=== PATIENT | male | born 1950 | race American Indian/Alaskan Native ===

== ENCOUNTER 2017-07-06 06:06 | Inpatient (IN) | payer MEDICAID, MEDICARE, OTHER ==
--- NOTE | 2017-07-06 06:54 | Cat Scan Report ---
FINAL REPORT PROCEDURE: CT HEAD/BRAIN WO CON TECHNIQUE: Computerized tomography of the head was performed without contrast material. HISTORY: neuro deficits \T\lt; 6hrs or sx present upon awakening COMPARISON: No prior studies are available for comparison. FINDINGS: Skull and scalp: Normal. Paranasal sinuses: Normal. Ventricles and subarachnoid spaces: Normal. Cerebrum: No evidence of hemorrhage, acute infarction or mass. Significant atrophy and periventricular deep white matter changes are noted. Old lacunar infarctions of the basal ganglia.. Cerebellum and brainstem: No evidence of hemorrhage, acute infarction or mass. Vasculature: Normal. Comments: None. IMPRESSION: No evidence of an acute intracranial process. Significant atrophy and periventricular deep white matter changes. Old lacunar infarctions of both basal ganglia.
[2017-07-06] MEDS ORDERED: CATAPRES PO ONE (07:06)
--- NOTE | 2017-07-06 07:06 | Emergency Department Report ---
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 Patient was last seen yesterday evening about 8 PM after dinner. Sometime during the night patient fell on a floor. Patient does not know how he ended up from the floor and does not falling or passing out. He doesn't know how long he was on the floor. He denies any pain. Patient has some mild confusion. Initially states year is 1916 but then corrects to 2017. Patient states he does not know where his blood pressure medications are. Cannot recall his last dose thinks he took it yesterday. Family states that his mild confusion and memory deficit are new symptoms. - Related Data Previous Rx's Medication Instructions Recorded Last Taken Type HYDROcodone/APAP 5-325 [[place] 1 each PO Q6HR PRN #20 tablet 07/12/13 Unknown Rx 5/325 mg] cloNIDine [Catapres] 0.2 mg PO BID #28 tablet 07/12/13 Unknown Rx Allergies Allergy/AdvReac Type Severity Reaction Status Date / Time Penicillins Allergy Rash Verified 07/12/13 14:56 ED Review of Systems ROS: Stated complaint: AMS/POSS CVA Other details as noted in HPI Comment: All other systems reviewed and negative Other: Constitutional: No fevers chills Eyes: No eye pain visual changes ENT: No ear pain or throat pain Neck: Denies pain Respiratory: Denies cough wheezing shortness of breath Cardiovascular: Denies chest pain, palpitations, syncope GI: Denies abdominal pain, nausea, vomiting, diarrhea : Denies dysuria, urinary frequency, or urgency Musculoskeletal: Denies back pain Skin: Denies rash, lesions, erythema Neurologic: Denies headache. Chronic left-sided weakness secondary to previous CVA ambulates with a cane Psychiatric: Denies suicidal ideation, hallucinations ED Past Medical Hx - Past Medical History Hx Hypertension: Yes Hx CVA: Yes Additional medical history: CVA with pre-existing right sided weakness - Surgical History Additional Surgical History: Surgical removal of a mole - Social History Smoking Status: Never Smoker Substance Use Type: None - Medications Home Medications: Home Medications Medication Instructions Recorded Confirmed Last Taken Type HYDROcodone/APAP 5-325 [[place] 1 each PO Q6HR PRN #20 tablet 07/12/13 Unknown Rx 5/325 mg] cloNIDine [Catapres] 0.2 mg PO BID #28 tablet 07/12/13 Unknown Rx ED Physical Exam - General Limitations: Altered Mental Status - Other Other exam information: General: No limitations, patient is alert in no acute distress Head exam: Atraumatic, normocephalic Eyes exam: Normal appearance, pupils equal reactive to light, extraocular movements intact ENT: Moist mucous membrane, normal oropharynx Neck exam: Normal inspection, full range of motion, no meningismus nontender Respiratory exam: Clear to auscultation bilateral, no wheezes, rales, crackles Cardiovascular: Normal rate and rhythm, normal heart sounds Abdomen: Soft, nondistended, and nontender, with normal bowel sounds, no rebound, or guarding Extremity: Full range of motion normal inspection no deformity Back: Normal Inspection, full range of motion, no tenderness Neurologic: Alert, oriented x3, cranial nerves intact, 4+/5 left upper and lower extremity strength. 5/5 right upper and lower extremity strength, finger- nose-finger function intact Psychiatric: normal affect, normal mood Skin: Warm, dry, intact ED Course Vital Signs 07/06/17 06:26 Temperature 98.6 F Pulse Rate 68 Respiratory 16 Rate Blood Pressure 182/113 Blood Pressure 182/113 [Left] O2 Sat by Pulse 97 Oximetry - Reevaluation(s) Reevaluation #1: 07/06/17 08:30 pt stable received clonidine 0.1 mg - Lab Data Result diagrams: 07/06/17 07:36 07/06/17 07:36 Lab Results 07/06/17 07/06/17 07/06/17 Range/Units 06:20 07:36 07:36 WBC 12.1 H (4.5-11.0) K/mm3 RBC 5.95 H (3.65-5.03) M/mm3 Hgb 15.0 (11.8-15.2) gm/dl Hct 46.6 H (35.5-45.6) % MCV 78 L (84-94) fl MCH 25 L (28-32) pg MCHC 32 (32-34) % RDW 17.5 H (13.2-15.2) % Plt Count 624 H (140-440) K/mm3 Lymph % (Auto) 15.6 (13.4-35.0) % [place] % (Auto) 5.1 (0.0-7.3) % Eos % (Auto) 0.5 (0.0-4.3) % Baso % (Auto) 0.8 (0.0-1.8) % Lymph # 1.9 (1.2-5.4) K/mm3 [place] # 0.6 (0.0-0.8) K/mm3 Eos # 0.1 (0.0-0.4) K/mm3 Baso # 0.1 (0.0-0.1) K/mm3 Seg Neutrophils % 78.0 H (40.0-70.0) % Seg Neutrophils # 9.4 H (1.8-7.7) K/mm3 PT 13.9 (12.2-14.9) Sec. INR 1.02 (0.87-1.13) APTT 37.1 H (24.2-36.6) Sec. Thrombin Time (15.1-19.6) Sec. Sodium (137-145) mmol/L Potassium (3.6-5.0) mmol/L Chloride (98-107) mmol/L Carbon Dioxide (22-30) mmol/L Anion Gap mmol/L BUN (9-20) mg/dL Creatinine (0.8-1.5) mg/dL Estimated GFR ml/min BUN/Creatinine Ratio % Glucose (75-100) mg/dL POC Glucose 84 (70-105) Calcium (8.4-10.2) mg/dL Magnesium (1.7-2.3) mg/dL Total Creatine Kinase (55-170) units/L CK-MB (CK-2) (0.0-4.0) ng/mL CK-MB (CK-2) Rel Index (0-4) Troponin T (0.00-0.029) ng/mL Plasma/Serum Alcohol (0-0.07) gm% 07/06/17 07/06/17 07/06/17 Range/Units 07:36 07:36 07:36 WBC (4.5-11.0) K/mm3 RBC (3.65-5.03) M/mm3 Hgb (11.8-15.2) gm/dl Hct (35.5-45.6) % MCV (84-94) fl MCH (28-32) pg MCHC (32-34) % RDW (13.2-15.2) % Plt Count (140-440) K/mm3 Lymph % (Auto) (13.4-35.0) % [place] % (Auto) (0.0-7.3) % Eos % (Auto) (0.0-4.3) % Baso % (Auto) (0.0-1.8) % Lymph # (1.2-5.4) K/mm3 [place] # (0.0-0.8) K/mm3 Eos # (0.0-0.4) K/mm3 Baso # (0.0-0.1) K/mm3 Seg Neutrophils % (40.0-70.0) % Seg Neutrophils # (1.8-7.7) K/mm3 PT (12.2-14.9) Sec. INR (0.87-1.13) APTT (24.2-36.6) Sec. Thrombin Time 17.9 (15.1-19.6) Sec. Sodium 143 (137-145) mmol/L Potassium 3.3 L (3.6-5.0) mmol/L Chloride 103.4 (98-107) mmol/L Carbon Dioxide 25 (22-30) mmol/L Anion Gap 18 mmol/L BUN 15 (9-20) mg/dL Creatinine 1.0 (0.8-1.5) mg/dL Estimated GFR > 60 ml/min BUN/Creatinine Ratio 15.00 % Glucose 90 (75-100) mg/dL POC Glucose (70-105) Calcium 9.0 (8.4-10.2) mg/dL Magnesium (1.7-2.3) mg/dL Total Creatine Kinase 224 H (55-170) units/L CK-MB (CK-2) 3.3 (0.0-4.0) ng/mL CK-MB (CK-2) Rel Index 1.4 (0-4) Troponin T < 0.010 (0.00-0.029) ng/mL Plasma/Serum Alcohol (0-0.07) gm% 07/06/17 07/06/17 Range/Units 07:36 07:36 WBC (4.5-11.0) K/mm3 RBC (3.65-5.03) M/mm3 Hgb (11.8-15.2) gm/dl Hct (35.5-45.6) % MCV (84-94) fl MCH (28-32) pg MCHC (32-34) % RDW (13.2-15.2) % Plt Count (140-440) K/mm3 Lymph % (Auto) (13.4-35.0) % [place] % (Auto) (0.0-7.3) % Eos % (Auto) (0.0-4.3) % Baso % (Auto) (0.0-1.8) % Lymph # (1.2-5.4) K/mm3 [place] # (0.0-0.8) K/mm3 Eos # (0.0-0.4) K/mm3 Baso # (0.0-0.1) K/mm3 Seg Neutrophils % (40.0-70.0) % Seg Neutrophils # (1.8-7.7) K/mm3 PT (12.2-14.9) Sec. INR (0.87-1.13) APTT (24.2-36.6) Sec. Thrombin Time (15.1-19.6) Sec. Sodium (137-145) mmol/L Potassium (3.6-5.0) mmol/L Chloride (98-107) mmol/L Carbon Dioxide (22-30) mmol/L Anion Gap mmol/L BUN (9-20) mg/dL Creatinine (0.8-1.5) mg/dL Estimated GFR ml/min BUN/Creatinine Ratio % Glucose (75-100) mg/dL POC Glucose (70-105) Calcium (8.4-10.2) mg/dL Magnesium 2.20 (1.7-2.3) mg/dL Total Creatine Kinase (55-170) units/L CK-MB (CK-2) (0.0-4.0) ng/mL CK-MB (CK-2) Rel Index (0-4) Troponin T (0.00-0.029) ng/mL Plasma/Serum Alcohol < 0.01 (0-0.07) gm% - EKG Data -: EKG Interpreted by Me (sinus 69 with premature supra vent comp, lae, lad) - Radiology Data Radiology results: report reviewed (CT head: No acute findings. Old lacunar infarcts of both basal ganglia) - Medical Decision Making It is unclear whether patient had a syncopal episode and fell. No signs of trauma. CT head without acute findings. Patient is exhibiting some mild confusion which is new as per family. Hypokalemia treated with by mouth potassium. Hypertension treated with clonidine. Urine collection pending. Will admit patient to hospital for further workup and evaluation since patient is not currently at his baseline - Differential Diagnosis ICH, encephalopathy, infection, syncope, fall Critical Care Time: No Critical care attestation.: If time is entered above; I have spent that time in minutes in the direct care of this critically ill patient, excluding procedure time. ED Disposition Clinical Impression: Hypertension, Fall, Confusion, History of CVA with residual deficit, Hypokalemia Disposition: DC-09 OP ADMIT IP TO THIS HOSP Is pt being admited?: Yes Condition: Stable Time of Disposition: 08:32 (Dr Woods)
[2017-07-06 08:03] LABS: Basophils % (Auto) 0.8 % (0.0-1.8); Eosinophils % (Auto) 0.5 % (0.0-4.3); Hematocrit 46.6 % (35.5-45.6); Mean Corpuscular HGB Conc 32 % (32-34); Mean Corpuscular Volume 78 fl (84-94); Platelet Count 624 K/mm3 (140-440); Red Blood Count 5.95 M/mm3 (3.65-5.03); Red Cell Distribution Width 17.5 % (13.2-15.2); White Blood Count 12.1 K/mm3 (4.5-11.0)
[2017-07-06 08:06] LABS: Mean Corpuscular Hemoglobin 25 pg (28-32)
[2017-07-06 08:10] LABS: Anion Gap 18 mmol/L; Blood Urea Nitrogen 15 mg/dL (9-20); Carbon Dioxide 25 mmol/L (22-30); Chloride 103.4 mmol/L (98-107); Creatine Kinase MB 3.3 ng/mL (0.0-4.0); Glucose 90 mg/dL (75-100); Potassium 3.3 mmol/L (3.6-5.0); Sodium 143 mmol/L (137-145)
[2017-07-06 08:13] LABS: INR 1.02 (0.87-1.13)
[2017-07-06 08:14] LABS: Partial Thromboplastin Time 37.1 Sec. (24.2-36.6)
[2017-07-06] MEDS ORDERED: K-DUR PO ONE (08:14)
[2017-07-06 09:06] LABS: Urine Drugs of Abuse Note Disclamer
[2017-07-06 09:18] LABS: Bilirubin,Urine NEG (Negative); Blood,Urine SM (Negative); Ketones,Urine TR mg/dL (Negative); Leukocyte Esterase,Urine NEG (Negative); Mucus,Urine FEW /HPF; Nitrite,Urine NEG (Negative); Urobilinogen,Urine < 2.0 mg/dL (<2.0)
--- NOTE | 2017-07-06 11:08 | History and Physical Report ---
History of Present Illness Date of examination: 07/06/17 Date of admission: 07/06/17 Chief complaint: Passed out in AM History of present illness: - History of Present Illness Initial Comments: 66-year-old male with approximately 2 hypertension and CVA 2 with residual left -sided weakness presents to the hospital status post fall and with altered mental status. Patient was last seen yesterday evening about 8 PM after dinner. Sometime during the night patient fell on a floor. Patient does not know how he ended up from the floor and does not falling or passing out. He doesn't know how long he was on the floor. He denies any pain. Patient has some mild confusion. Initially states year is 1917 but then corrects to 2017. Patient states he does not know where his blood pressure medications are. Cannot recall his last dose thinks he took it yesterday. Family states that his mild confusion and memory deficit are new symptoms. - Related Data Previous Rx's Medication Instructions Recorded Last Taken Type HYDROcodone/APAP 5-325 [[place] 1 each PO Q6HR PRN #20 tablet 07/12/13 Unknown Rx 5/325 mg] cloNIDine [Catapres] 0.2 mg PO BID #28 tablet 07/12/13 Unknown Rx Allergies Allergy/AdvReac Type Severity Reaction Status Date / Time Penicillins Allergy Rash Verified 07/12/13 14:56 Review of Systems Stated complaint: AMS/POSS CVA Other details as noted in HPI Comment: All other systems reviewed and negative Other: Constitutional: No fevers chills Eyes: No eye pain visual changes ENT: No ear pain or throat pain Neck: Denies pain Respiratory: Denies cough wheezing shortness of breath Cardiovascular: Denies chest pain, palpitations, syncope GI: Denies abdominal pain, nausea, vomiting, diarrhea : Denies dysuria, urinary frequency, or urgency Musculoskeletal: Denies back pain Skin: Denies rash, lesions, erythema Neurologic: Denies headache. Chronic left-sided weakness secondary to previous CVA ambulates with a cane Psychiatric: Denies suicidal ideation, hallucinations Past Medical Hx - Past Medical History Hx Hypertension: Yes Hx CVA: Yes Additional medical history: CVA with pre-existing right sided weakness - Surgical History Additional Surgical History: Surgical removal of a mole - Social History Smoking Status: Never Smoker Substance Use Type: None Fam HX Htn - Medications Home Medications: Home Medications Medication Instructions Recorded Confirmed Last Taken Type HYDROcodone/APAP 5-325 [[place] 1 each PO Q6HR PRN #20 tablet 07/12/13 Unknown Rx 5/325 mg] cloNIDine [Catapres] 0.2 mg PO BID #28 tablet 07/12/13 Unknown Rx Medications and Allergies Allergies Allergy/AdvReac Type Severity Reaction Status Date / Time Penicillins Allergy Rash Verified 07/12/13 14:56 Home Medications Medication Instructions Recorded Confirmed Last Taken Type HYDROcodone/APAP 5-325 [[place] 1 each PO Q6HR PRN #20 tablet 07/12/13 Unknown Rx 5/325 mg] cloNIDine [Catapres] 0.2 mg PO BID #28 tablet 07/12/13 Unknown Rx Exam - Physical Exam Narrative exam: Lying in bed - Constitutional Vitals: Temp Pulse Resp BP Pulse Ox 98.6 F 79 17 164/107 99 07/06/17 06:26 07/06/17 09:00 07/06/17 09:00 07/06/17 09:00 07/06/17 09:18 General appearance: Present: no acute distress, well-nourished - EENT Eyes: Present: PERRL ENT: hearing intact, clear oral mucosa - Neck Neck: Present: supple, normal ROM - Respiratory Respiratory effort: normal Respiratory: bilateral: CTA - Cardiovascular Heart rate: 80 Rhythm: regular Heart Sounds: Present: S1 & S2. Absent: rub, click - Extremities Extremities: pulses symmetrical, No edema Peripheral Pulses: within normal limits - Abdominal General gastrointestinal: Present: soft, non-tender, non-distended, normal bowel sounds Male genitourinary: Present: normal - Rectal Rectal Exam: deferred - Integumentary Integumentary: Present: clear, warm, dry - Musculoskeletal Musculoskeletal: gait normal, strength equal bilaterally - Psychiatric Psychiatric: appropriate mood/affect, intact judgment & insight - Neurologic Neurologic: CNII-XII intact, focal deficits (L Side hemiparesis), moves all extremities - Allied Health Allied health notes reviewed: nursing, case management Results - Labs CBC & Chem 7: 07/07/17 05:21 07/07/17 05:21 Labs: Laboratory Last Values WBC 12.1 K/mm3 (4.5-11.0) H 07/06/17 07:36 RBC 5.95 M/mm3 (3.65-5.03) H 07/06/17 07:36 Hgb 15.0 gm/dl (11.8-15.2) 07/06/17 07:36 Hct 46.6 % (35.5-45.6) H 07/06/17 07:36 MCV 78 fl (84-94) L 07/06/17 07:36 MCH 25 pg (28-32) L 07/06/17 07:36 MCHC 32 % (32-34) 07/06/17 07:36 RDW 17.5 % (13.2-15.2) H 07/06/17 07:36 Plt Count 624 K/mm3 (140-440) H 07/06/17 07:36 Lymph % (Auto) 15.6 % (13.4-35.0) 07/06/17 07:36 [place] % (Auto) 5.1 % (0.0-7.3) 07/06/17 07:36 Eos % (Auto) 0.5 % (0.0-4.3) 07/06/17 07:36 Baso % (Auto) 0.8 % (0.0-1.8) 07/06/17 07:36 Lymph # 1.9 K/mm3 (1.2-5.4) 07/06/17 07:36 [place] # 0.6 K/mm3 (0.0-0.8) 07/06/17 07:36 Eos # 0.1 K/mm3 (0.0-0.4) 07/06/17 07:36 Baso # 0.1 K/mm3 (0.0-0.1) 07/06/17 07:36 Seg Neutrophils % 78.0 % (40.0-70.0) H 07/06/17 07:36 Seg Neutrophils # 9.4 K/mm3 (1.8-7.7) H 07/06/17 07:36 PT 13.9 Sec. (12.2-14.9) 07/06/17 07:36 INR 1.02 (0.87-1.13) 07/06/17 07:36 APTT 37.1 Sec. (24.2-36.6) H 07/06/17 07:36 Thrombin Time 17.9 Sec. (15.1-19.6) 07/06/17 07:36 Sodium 143 mmol/L (137-145) 07/06/17 07:36 Potassium 3.3 mmol/L (3.6-5.0) L 07/06/17 07:36 Chloride 103.4 mmol/L (98-107) 07/06/17 07:36 Carbon Dioxide 25 mmol/L (22-30) 07/06/17 07:36 Anion Gap 18 mmol/L 07/06/17 07:36 BUN 15 mg/dL (9-20) 07/06/17 07:36 Creatinine 1.0 mg/dL (0.8-1.5) 07/06/17 07:36 Estimated GFR > 60 ml/min 07/06/17 07:36 BUN/Creatinine Ratio 15.00 % 07/06/17 07:36 Glucose 90 mg/dL (75-100) 07/06/17 07:36 POC Glucose 84 (70-105) 07/06/17 06:20 Calcium 9.0 mg/dL (8.4-10.2) 07/06/17 07:36 Magnesium 2.20 mg/dL (1.7-2.3) 07/06/17 07:36 Total Creatine Kinase 224 units/L (55-170) H 07/06/17 07:36 CK-MB (CK-2) 3.3 ng/mL (0.0-4.0) 07/06/17 07:36 CK-MB (CK-2) Rel Index 1.4 (0-4) 07/06/17 07:36 Troponin T < 0.010 ng/mL (0.00-0.029) 07/06/17 07:36 Urine Color Straw (Yellow) 07/06/17 07:30 Urine Turbidity Clear (Clear) 07/06/17 07:30 Urine pH 7.0 (5.0-7.0) 07/06/17 07:30 Ur Specific [place] 1.010 (1.003-1.030) 07/06/17 07:30 Urine Protein 30 mg/dl mg/dL (Negative) 07/06/17 07:30 Urine Glucose (UA) Neg mg/dL (Negative) 07/06/17 07:30 Urine Ketones Tr mg/dL (Negative) 07/06/17 07:30 Urine Blood Sm (Negative) 07/06/17 07:30 Urine Nitrite Neg (Negative) 07/06/17 07:30 Urine Bilirubin Neg (Negative) 07/06/17 07:30 Urine Urobilinogen < 2.0 mg/dL (<2.0) 07/06/17 07:30 Ur Leukocyte Esterase Neg (Negative) 07/06/17 07:30 Urine WBC (Auto) 1.0 /HPF (0.0-6.0) 07/06/17 07:30 Urine RBC (Auto) 3.0 /HPF (0.0-6.0) 07/06/17 07:30 Urine Mucus Few /HPF 07/06/17 07:30 Urine Opiates Screen Presumptive negative 07/06/17 07:30 Urine Methadone Screen Presumptive negative 07/06/17 07:30 Ur Barbiturates Screen Presumptive negative 07/06/17 07:30 Ur Phencyclidine Scrn Presumptive negative 07/06/17 07:30 Ur Amphetamines Screen Presumptive negative 07/06/17 07:30 U Benzodiazepines Scrn Presumptive negative 07/06/17 07:30 Urine Cocaine Screen Presumptive negative 07/06/17 07:30 U Marijuana (THC) Screen Presumptive negative 07/06/17 07:30 Drugs of Abuse Note Disclamer 07/06/17 07:30 Plasma/Serum Alcohol < 0.01 gm% (0-0.07) 07/06/17 07:36 Short CBC 07/07/17 Range/Units 05:21 WBC 8.4 (4.5-11.0) K/mm3 Hgb 14.3 (11.8-15.2) gm/dl Hct 43.1 (35.5-45.6) % Plt Count 574 H (140-440) K/mm3 BMP 07/07/17 05:21 Sodium 142 Potassium 4.0 D Chloride 102.7 Carbon Dioxide 24 BUN 17 Creatinine 1.3 Glucose 94 Calcium 9.3 Cardiac Enzymes 07/06/17 07/06/17 07/06/17 Range/Units 12:29 17:59 23:20 Total Creatine Kinase 205 H 214 H 227 H (55-170) units/L CK-MB (CK-2) 3.0 2.8 2.8 (0.0-4.0) ng/mL - Imaging and Cardiology EKG: report reviewed Chest x-ray: report reviewed Assessment and Plan Advance Directives: Yes (Full code ) VTE prophylaxis?: Chemical Plan of care discussed with patient/family: Yes - Patient Problems (1) Syncope and collapse Current Visit: Yes Status: Acute Plan to address problem: Syncope w/u Lexiscan and MRI/MRA (2) Hypokalemia Current Visit: Yes Status: Acute Plan to address problem: Supplemented (3) Hypertension Current Visit: Yes Status: Chronic Qualifiers: Hypertension type: essential hypertension Qualified Code(s): I10 - Essential (primary) hypertension Plan to address problem: Cont Clonidine (4) CVA (cerebral vascular accident) Current Visit: Yes Status: Chronic Qualifiers: CVA mechanism: unspecified Precerebral and cerebral artery: P Laterality of affected vessel: L Qualified Code(s): I63.9 - Cerebral infarction, unspecified Plan to address problem: L side weakness present Supportive care (5) DVT prophylaxis Current Visit: Yes Status: Acute
[2017-07-06] MEDS ORDERED: NORCO 5/325 PO PRN (11:18)
[2017-07-06] MEDS ORDERED: DULCOLAX PR PRN (11:27)
[2017-07-06] MEDS ORDERED: MILK OF MAGNESIA PO PRN (11:27)
[2017-07-06] MEDS ORDERED: PERCOCET 5/325 PO PRN (11:27)
[2017-07-06] MEDS ORDERED: ZOFRAN IV PRN (11:27)
[2017-07-06] MEDS ORDERED: DILAUDID IV PRN (11:27)
[2017-07-06] MEDS ORDERED: TYLENOL PO PRN (11:27)
[2017-07-06] MEDS ORDERED: NOVOLOG SUB-Q ONE (11:42)
[2017-07-06] MEDS: CATAPRES PO SCH ×2 (13:00→21:57)
[2017-07-06] MEDS ORDERED: CATAPRES ONE (13:09)
--- NOTE | 2017-07-06 14:52 | Consultation ---
History of Present Illness - Reason for Consult Consult date: 07/06/17 stroke - History of Present Illness patient seen and fully assessed there is acute left sided weakness no bleed seen on the CT await the MRI advise medical therapy and high dose statin/ BP control/ asa 81 mg spoke to family and went over the results of exam Medications and Allergies Allergies Allergy/AdvReac Type Severity Reaction Status Date / Time Penicillins Allergy Rash Verified 07/12/13 14:56 Home Medications Medication Instructions Recorded Confirmed Last Taken Type HYDROcodone/APAP 5-325 [[place] 1 each PO Q6HR PRN #20 tablet 07/12/13 Unknown Rx 5/325 mg] cloNIDine [Catapres] 0.2 mg PO BID #28 tablet 07/12/13 Unknown Rx Active Meds: Active Medications Acetaminophen (Tylenol) 650 mg PO Q4H PRN PRN Reason: Pain MILD(1-3)/Fever >100.5/CHANG Bisacodyl (Dulcolax) 10 mg [place] QDAY PRN PRN Reason: Constipation unrelieved by MOM Clonidine HCl (Catapres) 0.2 mg PO BID OLIVIA Last Admin: 07/06/17 13:00 Dose: 0.2 mg Enoxaparin Sodium (Lovenox) 40 mg SUB-Q QDAY OLIVIA Hydromorphone HCl (Dilaudid) 0.5 mg IV Q3H PRN PRN Reason: Pain , Severe (7-10) Dextrose/Sodium Chloride (D5ns) 1,000 mls @ 75 mls/hr IV DIRECT OLIVIA Magnesium Hydroxide (Milk Of Magnesia) 30 ml PO Q4H PRN PRN Reason: Constipation Ondansetron HCl (Zofran) 4 mg IV Q8H PRN PRN Reason: N/V unrelieved by Reglan Oxycodone/Acetaminophen (Percocet 5/325) 1 tab PO Q6H PRN PRN Reason: Pain, Moderate (4-6) Exam - Constitutional Vitals: Temp Pulse Resp BP Pulse Ox 98.6 F 66 14 157/97 99 07/06/17 06:26 07/06/17 13:15 07/06/17 13:15 07/06/17 13:15 07/06/17 09:18 Results - Labs CBC & Chem 7: 07/06/17 07:36 07/06/17 07:36
[2017-07-06 18:34] LABS: Creatine Kinase MB 2.8 ng/mL (0.0-4.0)
[2017-07-06] MEDS: LOVENOX SUB-Q SCH (20:01)
[2017-07-06] MEDS: D5NS 1,000 ML IV SCH (20:01)
[2017-07-06 23:58] LABS: Creatine Kinase MB 2.8 ng/mL (0.0-4.0)
[2017-07-07 05:50] LABS: Eosinophils % (Auto) 1.1 % (0.0-4.3); Hematocrit 43.1 % (35.5-45.6); Hemoglobin 14.3 gm/dl (11.8-15.2); Mean Corpuscular HGB Conc 33 % (32-34); Mean Corpuscular Volume 78 fl (84-94); Platelet Count 574 K/mm3 (140-440); Red Blood Count 5.53 M/mm3 (3.65-5.03); Red Cell Distribution Width 17.3 % (13.2-15.2); White Blood Count 8.4 K/mm3 (4.5-11.0)
[2017-07-07 05:51] LABS: Mean Corpuscular Hemoglobin 26 pg (28-32)
[2017-07-07 06:10] LABS: Anion Gap 19 mmol/L; BUN/Creatinine Ratio 13.07; Blood Urea Nitrogen 17 mg/dL (9-20); Calcium 9.3 mg/dL (8.4-10.2); Carbon Dioxide 24 mmol/L (22-30); Chloride 102.7 mmol/L (98-107); Glucose 94 mg/dL (75-100); Sodium 142 mmol/L (137-145)
[2017-07-07] MEDS ORDERED: LEXISCAN IV ONE ×2 (07:55→08:00)
[2017-07-07] MEDS: LOVENOX SUB-Q SCH (11:18)
[2017-07-07] MEDS: CATAPRES PO SCH ×2 (11:19→22:17)
--- NOTE | 2017-07-07 12:24 | Progress Note ---
Assessment and Plan - Patient Problems (1) Syncope and collapse Current Visit: Yes Status: Acute Plan to address problem: Syncope w/u Lexiscan and MRI/MRA (2) Hypokalemia Current Visit: Yes Status: Acute Plan to address problem: Supplemented (3) Hypertension Current Visit: Yes Status: Chronic Qualifiers: Hypertension type: essential hypertension Qualified Code(s): I10 - Essential (primary) hypertension Plan to address problem: Cont Clonidine (4) CVA (cerebral vascular accident) Current Visit: Yes Status: Chronic Qualifiers: CVA mechanism: unspecified Precerebral and cerebral artery: P Laterality of affected vessel: L Qualified Code(s): I63.9 - Cerebral infarction, unspecified Plan to address problem: L side weakness present Supportive care (5) DVT prophylaxis Current Visit: Yes Status: Acute Plan to address problem: on Lovenox Subjective Date of service: 07/07/17 Principal diagnosis: AMS and Syncope /Collapse Interval history: More alert and oeiented Objective - Exam Narrative Exam: Lying in bed - Constitutional Vitals: Vital Signs - 12hr 07/07/17 07/07/17 04:47 11:19 Temperature 98.2 F Pulse Rate 53 L Respiratory 18 Rate Blood Pressure 148/90 Blood Pressure 148/90 [Left] O2 Sat by Pulse 94 Oximetry General appearance: Present: no acute distress, well-nourished - EENT Eyes: PERRL, EOM intact ENT: hearing intact, clear oral mucosa Ears: bilateral: normal - Neck Neck: supple, normal ROM - Respiratory Respiratory effort: normal Respiratory: bilateral: CTA - Breasts Breasts: normal - Cardiovascular Rhythm: regular Heart Sounds: Present: S1 & S2. Absent: gallop, rub Extremities: pulses intact, No edema, normal color, Full ROM - Gastrointestinal General gastrointestinal: Present: soft, non-tender, non-distended, normal bowel sounds - Genitourinary Male genitourinary: normal - Integumentary Integumentary: clear, warm, dry - Musculoskeletal Musculoskeletal: 1, strength equal bilaterally - Neurologic Neurologic: moves all extremities - Psychiatric Psychiatric: memory intact, appropriate mood/affect, intact judgment & insight - Labs CBC & Chem 7: 07/07/17 05:21 07/07/17 05:21 Labs: Abnormal lab results 07/06/17 07/06/17 07/07/17 Range/Units 17:59 23:20 05:21 RBC 5.53 H (3.65-5.03) M/mm3 MCV 78 L (84-94) fl MCH 26 L (28-32) pg RDW 17.3 H (13.2-15.2) % Plt Count 574 H (140-440) K/mm3 Seg Neutrophils % 72.7 H (40.0-70.0) % Total Creatine Kinase 214 H 227 H (55-170) units/L
[2017-07-07] MEDS ORDERED: K-DUR PO NR (13:00)
[2017-07-07] MEDS: D5NS 1,000 ML IV SCH (22:16)
--- NOTE | 2017-07-08 09:15 | Consultation ---
HISTORY OF PRESENT ILLNESS: This is a 66-year-old black male who is admitted to the [facility] as emergency admission. He apparently had fallen the night before with left-sided weakness. He had a prior history of 3 strokes. Apparently, he had not improved after about 3 or 4 hours and his mother called his brother who came to the house and noticed that he had left-sided weakness, which resolved. He was subsequently transported to [facility] where he had a CT scan of the head, which showed acute intracranial process, significant atrophy, deep white matter changes and previous infarction in both vasoganglion. He has a known history of hypertension, which has been not very well controlled according to the family. His blood pressure on admission was 150/104, but subsequent to admission at this point is now 157/97. He is afebrile, pulse rate is 66, respirations 14. On examination, he is completely alert. He has a paresis of the left arm, mild paresis of the left leg. He does not have any facial paresis, however. He follows simple commands well, recognizes his mother, recognizes his brother, speaks to them. His motor and sensory examination is otherwise unremarkable. He does not have evidence of craniocervical trauma, no seizure activity is present. No evidence of any contusions, lacerations or abrasions noted about the head, neck or face. IMPRESSION: Acute stroke, right cerebral hemisphere deep white matter. I would recommend MRI, MRA, blood pressure control measures, medical treatment for stroke including high dose statin, aspirin 81 mg. We will start the patient on physical therapy. At this point, the stroke scale is 8 on the NIH index stroke scale . JOB# [id number] ROSENDO/NTS
[2017-07-08] MEDS: CATAPRES PO SCH ×2 (10:53→22:03)
[2017-07-08] MEDS: LOVENOX SUB-Q SCH (10:58)
[2017-07-08] MEDS ORDERED: Fluarix Quad 2017-2018(36 MOS+) IM ONE (12:00)
[2017-07-08] MEDS: D5NS 1,000 ML IV SCH (22:04)
--- NOTE | 2017-07-08 23:14 | Admit Criteria Form ---
Admission Criteria Documentation: SYNCOPE Clinical Indications for Admission to Inpatient Care ( Place 'X' for any and all applicable criteria): Admission is indicated for syncope and 1 or more of the following(1)(2)(3)(4)(5) (6)(7): [ ]I. Hemodynamic instability [ ]II. Suspicion of imminently dangerous cause (eg, subarachnoid hemorrhage, pulmonary embolism) [ ]III. Syncope causing injury requiring hospitalization [ ]IV. Respiratory distress [ ]V. Acute coronary syndrome identified. See Myocardial Infarction or Angina guideline [ x]V. Inpatient admission required rather than observation care (Also use Syncope: Observation Care Criteria as appropriate) because of 1 or more of the following: [ ]1) Cardiac arrhythmias of immediate concern identified or strongly suspected (eg, needs electrophysiologic study) [ ]2) Structural cardiac disorder (eg, aortic stenosis) suspected as cause that requires immediate treatment [ ]3) Neurologic signs or symptoms that are severe or persistent (eg, stroke, seizures, altered mental status) [ ]4) Severe electrolyte abnormalities requiring inpatient care [ ]5) Respiratory symptoms (eg, dyspnea, tachypnea) that are severe or persistent [ ]6) Dehydration that is severe or persistent [ ]7) Continuous intravenous infusion of anticoagulation, platelet inhibitor, vasoactive, or antiarrhythmic medication(15)(16 [ ]8) Pulmonary artery catheter monitoring [ ]9) Temporary pacemaker placement [ ]10) Emergent cardioversion [ x]11) Other condition,treatment,or monitoring requiring inpatient admission Extended stay beyond goal length of stay may be needed for(28) [ ]a) Dangerous arrhythmia(15)(23)(27)(29) [ ]b) Myocardial ischemia [ ]c) Seizure disorder [ ]d) Syncope-related injuries The original [employer] content created by [employer] has been revised. The portions of the content which have been revised are identified through the use of italic text or in bold, and [employer] has neither reviewed nor approved the modified material. All other unmodified content is copyright [employer] Please see references footnoted in the original [employer] edition 2017 Admission Criteria Met: Yes
--- NOTE | 2017-07-09 09:17 | Progress Note ---
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 Patient was last seen yesterday evening about 8 PM after dinner. Sometime during the night patient fell on a floor. Patient does not know how he ended up from the floor and does not falling or passing out. He doesn't know how long he was on the floor. He denies any pain. Patient has some mild confusion. Initially states year is 1917 but then corrects to 2017. Patient states he does not know where his blood pressure medications are. Cannot recall his last dose thinks he took it yesterday. Family states that his mild confusion and memory deficit are new symptoms. LEFT SIDED HEMIPLEGIA * Hx of stroke * PT/OT eval Acute Encephalopathy * Awaiting MRI result Bradycardia * Cardiology consult * Echocardiogram especailly in the setting of syncope FALL * PT/OT Hypokalemia * Potassium supplement given Syncope and Collapse * Check Echo HTN * Cont Clonidine DVT/GI Prophy History Interval history: Patient seen and examined, confused, adamant about going home. Hospitalist Physical - Physical exam Narrative exam: VITAL SIGNS: Reviewed. GENERAL: The patient appeared well nourished and normally developed. Vital signs as documented. HEAD: No signs of head trauma. EYES: Pupils are equal. Extraocular motions intact. EARS: Hearing grossly intact. MOUTH: Oropharynx is normal. NECK: No adenopathy, no JVD. CHEST: Chest with clear breath sounds bilaterally. No wheezes, rales, or rhonchi. CARDIAC: Regular rate and rhythm. S1 and S2, without murmurs, gallops, or rubs. VASCULAR: No Edema. Peripheral pulses normal and equal in all extremities. ABDOMEN: Soft, without detectable tenderness. No sign of distention. No rebound or guarding, and no masses palpated. Bowel Sounds normal. MUSCULOSKELETAL: Good range of motion of all major joints. Extremities without clubbing, cyanosis or edema. NEUROLOGIC EXAM: Alert and oriented x 1. left sided motor strenght 4/5. Speech normal. Follows commands. PSYCHIATRIC: Mood normal. SKIN: No rash or lesions. - Constitutional Vitals: Temp Pulse Resp BP Pulse Ox 98.9 F 48 L 18 151/86 98 07/09/17 04:28 07/09/17 09:05 07/09/17 09:05 07/09/17 09:05 07/09/17 09:05 General appearance: Present: no acute distress, well-nourished Results - Labs CBC & Chem 7: 07/07/17 05:21 07/07/17 05:21 Labs: Laboratory Last Values WBC 8.4 K/mm3 (4.5-11.0) 07/07/17 05:21 RBC 5.53 M/mm3 (3.65-5.03) H 07/07/17 05:21 Hgb 14.3 gm/dl (11.8-15.2) 07/07/17 05:21 Hct 43.1 % (35.5-45.6) 07/07/17 05:21 MCV 78 fl (84-94) L 07/07/17 05:21 MCH 26 pg (28-32) L 07/07/17 05:21 MCHC 33 % (32-34) 07/07/17 05:21 RDW 17.3 % (13.2-15.2) H 07/07/17 05:21 Plt Count 574 K/mm3 (140-440) H 07/07/17 05:21 Lymph % (Auto) 19.4 % (13.4-35.0) 07/07/17 05:21 [place] % (Auto) 5.8 % (0.0-7.3) 07/07/17 05:21 Eos % (Auto) 1.1 % (0.0-4.3) 07/07/17 05:21 Baso % (Auto) 1.0 % (0.0-1.8) 07/07/17 05:21 Lymph # 1.6 K/mm3 (1.2-5.4) 07/07/17 05:21 [place] # 0.5 K/mm3 (0.0-0.8) 07/07/17 05:21 Eos # 0.1 K/mm3 (0.0-0.4) 07/07/17 05:21 Baso # 0.1 K/mm3 (0.0-0.1) 07/07/17 05:21 Seg Neutrophils % 72.7 % (40.0-70.0) H 07/07/17 05:21 Seg Neutrophils # 6.1 K/mm3 (1.8-7.7) 07/07/17 05:21 PT 13.9 Sec. (12.2-14.9) 07/06/17 07:36 INR 1.02 (0.87-1.13) 07/06/17 07:36 APTT 37.1 Sec. (24.2-36.6) H 07/06/17 07:36 Thrombin Time 17.9 Sec. (15.1-19.6) 07/06/17 07:36 Sodium 142 mmol/L (137-145) 07/07/17 05:21 Potassium 4.0 mmol/L (3.6-5.0) D 07/07/17 05:21 Chloride 102.7 mmol/L (98-107) 07/07/17 05:21 Carbon Dioxide 24 mmol/L (22-30) 07/07/17 05:21 Anion Gap 19 mmol/L 07/07/17 05:21 BUN 17 mg/dL (9-20) 07/07/17 05:21 Creatinine 1.3 mg/dL (0.8-1.5) 07/07/17 05:21 Estimated GFR > 60 ml/min 07/07/17 05:21 BUN/Creatinine Ratio 13.07 % 07/07/17 05:21 Glucose 94 mg/dL (75-100) 07/07/17 05:21 POC Glucose 84 (70-105) 07/06/17 13:07 Hemoglobin A1c 5.6 % (4-6) 07/07/17 05:21 Calcium 9.3 mg/dL (8.4-10.2) 07/07/17 05:21 Magnesium 2.20 mg/dL (1.7-2.3) 07/06/17 07:36 Total Creatine Kinase 227 units/L (55-170) H 07/06/17 23:20 CK-MB (CK-2) 2.8 ng/mL (0.0-4.0) 07/06/17 23:20 CK-MB (CK-2) Rel Index 1.2 (0-4) 07/06/17 23:20 Troponin T < 0.010 ng/mL (0.00-0.029) 07/06/17 07:36 Urine Color Straw (Yellow) 07/06/17 07:30 Urine Turbidity Clear (Clear) 07/06/17 07:30 Urine pH 7.0 (5.0-7.0) 07/06/17 07:30 Ur Specific [place] 1.010 (1.003-1.030) 07/06/17 07:30 Urine Protein 30 mg/dl mg/dL (Negative) 07/06/17 07:30 Urine Glucose (UA) Neg mg/dL (Negative) 07/06/17 07:30 Urine Ketones Tr mg/dL (Negative) 07/06/17 07:30 Urine Blood Sm (Negative) 07/06/17 07:30 Urine Nitrite Neg (Negative) 07/06/17 07:30 Urine Bilirubin Neg (Negative) 07/06/17 07:30 Urine Urobilinogen < 2.0 mg/dL (<2.0) 07/06/17 07:30 Ur Leukocyte Esterase Neg (Negative) 07/06/17 07:30 Urine WBC (Auto) 1.0 /HPF (0.0-6.0) 07/06/17 07:30 Urine RBC (Auto) 3.0 /HPF (0.0-6.0) 07/06/17 07:30 Urine Mucus Few /HPF 07/06/17 07:30 Urine Opiates Screen Presumptive negative 07/06/17 07:30 Urine Methadone Screen Presumptive negative 07/06/17 07:30 Ur Barbiturates Screen Presumptive negative 07/06/17 07:30 Ur Phencyclidine Scrn Presumptive negative 07/06/17 07:30 Ur Amphetamines Screen Presumptive negative 07/06/17 07:30 U Benzodiazepines Scrn Presumptive negative 07/06/17 07:30 Urine Cocaine Screen Presumptive negative 07/06/17 07:30 U Marijuana (THC) Screen Presumptive negative 07/06/17 07:30 Drugs of Abuse Note Disclamer 07/06/17 07:30 Plasma/Serum Alcohol < 0.01 gm% (0-0.07) 07/06/17 07:36 - Imaging and Cardiology MRI - head: pending
--- NOTE | 2017-07-09 09:19 | Progress Note ---
Assessment and Plan - Patient Problems (1) Syncope and collapse Current Visit: Yes Status: Acute Plan to address problem: Syncope w/u Lexiscan not done b/c of patient's combativeness (2) Hypokalemia Current Visit: Yes Status: Acute Plan to address problem: Supplemented (3) Hypertension Current Visit: Yes Status: Chronic Qualifiers: Qualified Code(s): I10 - Essential (primary) hypertension Plan to address problem: Cont Clonidine (4) CVA (cerebral vascular accident) Current Visit: Yes Status: Chronic Qualifiers: Qualified Code(s): I63.9 - Cerebral infarction, unspecified Plan to address problem: L side weakness present Supportive care (5) DVT prophylaxis Current Visit: Yes Status: Acute Plan to address problem: on Lovenox Subjective Date of service: 07/08/17 Principal diagnosis: AMS and Syncope /Collapse Interval history: Late entry More alert and oeiented Objective - Exam Narrative Exam: Lying in bed - Constitutional Vitals: Vital Signs - 12hr 07/08/17 07/08/17 07/09/17 22:03 23:40 04:00 Temperature 99.0 F Pulse Rate 58 L 58 L 58 L Respiratory 20 Rate Blood Pressure 169/93 137/87 O2 Sat by Pulse 96 Oximetry 07/09/17 07/09/17 04:28 09:05 Temperature 98.9 F Pulse Rate 50 L 48 L Respiratory 18 18 Rate Blood Pressure 149/89 151/86 O2 Sat by Pulse 98 98 Oximetry General appearance: Present: no acute distress, well-nourished - EENT Eyes: PERRL, EOM intact ENT: hearing intact, clear oral mucosa Ears: bilateral: normal - Neck Neck: supple, normal ROM - Respiratory Respiratory effort: normal Respiratory: bilateral: CTA - Breasts Breasts: normal - Cardiovascular Rhythm: regular Heart Sounds: Present: S1 & S2. Absent: gallop, rub Extremities: pulses intact, No edema, normal color, Full ROM - Gastrointestinal General gastrointestinal: Present: soft, non-tender, non-distended, normal bowel sounds - Genitourinary Male genitourinary: normal - Integumentary Integumentary: clear, warm, dry - Musculoskeletal Musculoskeletal: 1, strength equal bilaterally - Neurologic Neurologic: moves all extremities - Psychiatric Psychiatric: memory intact, appropriate mood/affect, intact judgment & insight - Labs CBC & Chem 7: 07/07/17 05:21 07/07/17 05:21
[2017-07-09] MEDS: LOVENOX SUB-Q SCH (10:37)
[2017-07-09] MEDS: CATAPRES PO SCH ×2 (10:37→22:03)
[2017-07-09] MEDS ORDERED: ATIVAN IV ONE (11:15)
--- NOTE | 2017-07-09 11:59 | Consultation ---
History of Present Illness Consult date: 07/09/17 Consult reason: bradycardia History of present illness: This is a 66yr old male who is admitted 07/06 with alteration of mental status. History is unobtainable. No family members are present. Review of records reports the patient has a history of prior CVA and Hypertension. Noted a blood pressure of 18/[address] reports no acute intracranial process. Cardiac consultation was requested for bradycardia noted on vitals. His ECG shows a normal sinus rhythm. Review of telemetry strips shows a sinus bradycardia with rate in the low 50s. Patient denies chest pain and shortness of breath. He denies dizziness. Patient is noted on high dose clonidine 0.2mg for his blood pressure management. Medications and Allergies Allergies Allergy/AdvReac Type Severity Reaction Status Date / Time Penicillins Allergy Rash Verified 07/12/13 14:56 Home Medications Medication Instructions Recorded Confirmed Last Taken Type HYDROcodone/APAP 5-325 [[place] 1 each PO Q6HR PRN #20 tablet 07/12/13 07/07/17 Unknown Rx 5/325 mg] cloNIDine [Catapres] 0.2 mg PO BID #28 tablet 07/12/13 07/07/17 Unknown Rx Active Meds: Active Medications Acetaminophen (Tylenol) 650 mg PO Q4H PRN PRN Reason: Pain MILD(1-3)/Fever >100.5/CHANG Bisacodyl (Dulcolax) 10 mg [place] QDAY PRN PRN Reason: Constipation unrelieved by MOM Clonidine HCl (Catapres) 0.2 mg PO BID [facility] Last Admin: 07/09/17 10:37 Dose: Not Given Enoxaparin Sodium (Lovenox) 40 mg SUB-Q QDAY [facility] Last Admin: 07/09/17 10:37 Dose: 40 mg Hydromorphone HCl (Dilaudid) 0.5 mg IV Q3H PRN PRN Reason: Pain , Severe (7-10) Dextrose/Sodium Chloride (D5ns) 1,000 mls @ 75 mls/hr IV DIRECT [facility] Last Admin: 07/08/17 22:04 Dose: 75 mls/hr Magnesium Hydroxide (Milk Of Magnesia) 30 ml PO Q4H PRN PRN Reason: Constipation Ondansetron HCl (Zofran) 4 mg IV Q8H PRN PRN Reason: N/V unrelieved by Reglan Oxycodone/Acetaminophen (Percocet 5/325) 1 tab PO Q6H PRN PRN Reason: Pain, Moderate (4-6) Physical Examination Vital Signs Temp Pulse Resp BP Pulse Ox 98.6 F 68 16 182/113 97 07/06/17 06:26 07/06/17 06:26 07/06/17 06:26 07/06/17 06:26 07/06/17 06:26 General appearance: no acute distress HEENT: Positive: PERRL Cardiac: Positive: Reg Rate and Rhythm Lungs: Positive: Decreased Breath Sounds Results 07/07/17 05:21 07/07/17 05:21 Assessment and Plan Alteration of mental status Head CT reports no acute intracranial process Hypertension Prior CVA Asymptomatic sinus bradycardia noted on clonidine 0.2mg twice a day
[2017-07-09] MEDS: D5NS 1,000 ML IV SCH (22:07)
[2017-07-10] MEDS: CATAPRES PO SCH ×2 (09:52→22:54)
[2017-07-10] MEDS: LOVENOX SUB-Q SCH (09:53)
--- NOTE | 2017-07-10 10:03 | Progress Note ---
Assessment and Plan Alteration of mental status Head CT reports no acute intracranial process Hypertension Prior CVA Asymptomatic sinus bradycardia noted on clonidine 0.2mg twice a day Echocardiogram reports an LVEF 45-50%. Conservative cardiac management. Subjective Date of service: 07/10/17 Principal diagnosis: AMS and Syncope /Collapse Interval history: Patient alert with confusion. Objective Vital Signs Temp Pulse Pulse Resp BP Pulse Ox 07/10/17 05:27 97.7 F 56 L 18 164/96 96 07/10/17 00:22 97.9 F 72 18 163/100 95 07/09/17 22:03 77 169/106 07/09/17 20:50 80 20 98 07/09/17 20:16 98.8 F 77 18 169/106 96 07/09/17 19:10 76 07/09/17 16:33 94 H 96 07/09/17 16:32 99.1 F 94 H 20 166/100 96 - Physical Examination General: No Apparent Distress HEENT: Positive: PERRL Cardiac: Positive: Reg Rate and Rhythm - Imaging and Cardiology EKG: report reviewed
--- NOTE | 2017-07-10 14:30 | Magnetic Resonance Report ---
MRI of the brain without contrast. History: Stroke. Procedure: Routine brain protocol without contrast. Findings: There are multiple areas of restricted diffusion involving the right hippocampus and amygdala as well as the right lentiform nucleus. No additional areas of restricted diffusion are seen. Chronic lacunar infarcts are seen in the sofia bilaterally and in the left basal ganglia. Extensive abnormal hyperintense T2 signal is seen in the periventricular white matter bilaterally, worse on the left. There are no masses or extra-axial collections. There is no shift of the midline. The pituitary gland appears normal although the sagittal images are most affected by motion artifact. Impression: Acute/subacute infarcts involving the right basal ganglia, hippocampus, and amygdala. 2. Multiple chronic lacunar infarcts and extensive periventricular microangiopathic changes are described.
--- NOTE | 2017-07-10 14:44 | Magnetic Resonance Report ---
MRA of the [place]. History: CVA. Procedure: 3-D [id number] technique. Findings: There is severe narrowing of the right carotid siphon with diminished signal within the right proximal anterior cerebral artery and the right middle cerebral artery throughout its course. No focal narrowing is seen within the right middle cerebral artery. The left distal internal carotid artery, left middle cerebral and anterior cerebral arteries are normal. The vertebral and basilar arteries are patent. No significant findings are seen in the posterior cerebral territory. 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
--- NOTE | 2017-07-10 14:51 | Discharge Summary ---
Providers - Providers Date of Admission: 07/06/17 12:54 Attending physician: AVANI ZHAO MD 07/07/17 23:45 Physical Therapy Evaluation and Treat [CONS] Routine Comment: Reason For Exam: cva 07/09/17 09:28 Consult to Physician [CONS] Routine Consulting Provider: HANANE WILLAMS Reason For Exam: BRADYCARDIA WITH SYNCOPE Place consult to:: Dr. Willams Notified:: Alan CORDERO Was contact made?: Yes If yes, spoke with:: Chela Head Time called:: 10:00 Primary care physician: [employer] Hospitalization Reason for admission: CVA Condition: Stable Hospital course: 66-year-old male with approximately 2 hypertension and CVA 2 with residual left -sided weakness presents to the hospital status post fall and with altered mental status. Patient was last seen yesterday evening about 8 PM after dinner. Sometime during the night patient fell on a floor. Patient does not know how he ended up from the floor and does not falling or passing out. He doesn't know how long he was on the floor. He denies any pain. Patient has some mild confusion. Initially states year is 1917 but then corrects to 2017. Patient states he does not know where his blood pressure medications are. Cannot recall his last dose thinks he took it yesterday. Family states that his mild confusion and memory deficit are new symptoms. MRI/MRA- MRI shows hypertensive infarct changes along the periventricular area on the right side- the MRA shows which is severe. Neurology recommended treatment with plavix/ asparin/ lipitor 80m patient will be transferred to residential facility for rehabilitation. Also monitoring of encephalopathy which is likely secondary to the CVA possible underlying dementia also. Electrolytes were replaced. Patient was seen by cardiology ejection fraction was noted to be 40- 45% with no diastolic dysfunction noted. Procardia was added for blood pressure control. Carotid ultrasound was also done and negative for stenosis. Vascular surgery recommended a repeat in 1 year. Right sided cva likely secondary to HTN with carotid siphon stenosis LEFT SIDED HEMIPLEGIA Acute Encephalopathy Bradycardia FALL Hypokalemia Syncope and Collapse HTN Disposition: DC/TX-03 [facility] Time spent for discharge: 35 mins Core Measure Documentation - Palliative Care Palliative Care/ Comfort Measures: Not Applicable - Core Measures Any of the following diagnoses?: stroke - VTE Discharge Requirements Deep Vein Thrombosis/Pulmonary Embolism Present on Admission: No - Stroke Discharge Requirements Statin for LDL = or >70 mg/dl on DC: Yes Anticoag for atrial fib/atrial flutter: Not Applicable Antithrombotic for ischemic stroke: Yes Exam - Physical Exam Narrative exam: VITAL SIGNS: Reviewed. GENERAL: The patient appeared well nourished and normally developed. Vital signs as documented. HEAD: No signs of head trauma. EYES: Pupils are equal. Extraocular motions intact. EARS: Hearing grossly intact. MOUTH: Oropharynx is normal. NECK: No adenopathy, no JVD. CHEST: Chest with clear breath sounds bilaterally. No wheezes, rales, or rhonchi. CARDIAC: Regular rate and rhythm. S1 and S2, without murmurs, gallops, or rubs. VASCULAR: No Edema. Peripheral pulses normal and equal in all extremities. ABDOMEN: Soft, without detectable tenderness. No sign of distention. No rebound or guarding, and no masses palpated. Bowel Sounds normal. MUSCULOSKELETAL: Good range of motion of all major joints. Extremities without clubbing, cyanosis or edema. NEUROLOGIC EXAM: Alert and oriented x 2. left sided motor strength 4/5. Speech normal. Follows commands. PSYCHIATRIC: Mood normal. SKIN: No rash or lesions. - Constitutional Vitals: Temp Pulse Resp BP Pulse Ox 97.7 F 56 L 18 164/96 96 07/10/17 05:27 07/10/17 05:27 07/10/17 05:27 07/10/17 05:27 07/10/17 05:27 Plan Activity: advance as tolerated, fall precautions Diet: regular Special Instructions: record daily BP diary, physical therapy, occupational therapy Follow up with: PRIMARY MD GOGO [Primary Care Provider] - 3-5 Days RICHARD OKEEFE MD [Staff Physician] - 7 Days Prescriptions: AtorvaSTATin [Lipitor] 80 mg PO QHS #30 tablet Aspirin [Adult Low Dose Aspirin EC] 81 mg PO DAILY #30 tablet. Clopidogrel [Plavix] 75 mg PO QDAY #30 tablet HYDROcodone/APAP 5-325 [[place] 5-325 mg TAB] 1 each PO Q6HR PRN #20 tablet PRN Reason: Pain NIFEdipine XL [Procardia Xl] 60 mg PO QDAY #30 tablet
[2017-07-10] MEDS: ASPIRIN PO SCH (15:46)
--- NOTE | 2017-07-10 17:56 | Progress Note ---
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 Patient was last seen yesterday evening about 8 PM after dinner. Sometime during the night patient fell on a floor. Patient does not know how he ended up from the floor and does not falling or passing out. He doesn't know how long he was on the floor. He denies any pain. Patient has some mild confusion. Initially states year is 1917 but then corrects to 2017. Patient states he does not know where his blood pressure medications are. Cannot recall his last dose thinks he took it yesterday. Family states that his mild confusion and memory deficit are new symptoms. 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 LEFT SIDED HEMIPLEGIA * secondary to cva * PT/OT eval Acute Encephalopathy * secondary to CVA Bradycardia * Cardiology input noted. FALL * PT/OT- RECOMMENDED SNF Hypokalemia * Potassium supplement given Syncope and Collapse * 40-45% EF with diastolic dysfunction * no severe arotic stenosis HTN * Cont Clonidine DVT/GI Prophy Hold discharge until evaluated by vascular. History Interval history: Patient seen and examined, confused, adamant about going home. Hospitalist Physical - Physical exam Narrative exam: VITAL SIGNS: Reviewed. GENERAL: The patient appeared well nourished and normally developed. Vital signs as documented. HEAD: No signs of head trauma. EYES: Pupils are equal. Extraocular motions intact. EARS: Hearing grossly intact. MOUTH: Oropharynx is normal. NECK: No adenopathy, no JVD. CHEST: Chest with clear breath sounds bilaterally. No wheezes, rales, or rhonchi. CARDIAC: Regular rate and rhythm. S1 and S2, without murmurs, gallops, or rubs. VASCULAR: No Edema. Peripheral pulses normal and equal in all extremities. ABDOMEN: Soft, without detectable tenderness. No sign of distention. No rebound or guarding, and no masses palpated. Bowel Sounds normal. MUSCULOSKELETAL: Good range of motion of all major joints. Extremities without clubbing, cyanosis or edema. NEUROLOGIC EXAM: Alert and oriented x 1. left sided motor strenght 4/5. Speech normal. Follows commands. PSYCHIATRIC: Mood normal. SKIN: No rash or lesions. - Constitutional Vitals: Temp Pulse Resp BP Pulse Ox 97.7 F 56 L 18 164/96 96 07/10/17 05:27 07/10/17 05:27 07/10/17 05:27 07/10/17 05:27 07/10/17 05:27 General appearance: Present: no acute distress, well-nourished Results - Labs CBC & Chem 7: 07/07/17 05:21 07/07/17 05:21 Labs: Laboratory Last Values WBC 8.4 K/mm3 (4.5-11.0) 07/07/17 05:21 RBC 5.53 M/mm3 (3.65-5.03) H 07/07/17 05:21 Hgb 14.3 gm/dl (11.8-15.2) 07/07/17 05:21 Hct 43.1 % (35.5-45.6) 07/07/17 05:21 MCV 78 fl (84-94) L 07/07/17 05:21 MCH 26 pg (28-32) L 07/07/17 05:21 MCHC 33 % (32-34) 07/07/17 05:21 RDW 17.3 % (13.2-15.2) H 07/07/17 05:21 Plt Count 574 K/mm3 (140-440) H 07/07/17 05:21 Lymph % (Auto) 19.4 % (13.4-35.0) 07/07/17 05:21 [place] % (Auto) 5.8 % (0.0-7.3) 07/07/17 05:21 Eos % (Auto) 1.1 % (0.0-4.3) 07/07/17 05:21 Baso % (Auto) 1.0 % (0.0-1.8) 07/07/17 05:21 Lymph # 1.6 K/mm3 (1.2-5.4) 07/07/17 05:21 [place] # 0.5 K/mm3 (0.0-0.8) 07/07/17 05:21 Eos # 0.1 K/mm3 (0.0-0.4) 07/07/17 05:21 Baso # 0.1 K/mm3 (0.0-0.1) 07/07/17 05:21 Seg Neutrophils % 72.7 % (40.0-70.0) H 07/07/17 05:21 Seg Neutrophils # 6.1 K/mm3 (1.8-7.7) 07/07/17 05:21 PT 13.9 Sec. (12.2-14.9) 07/06/17 07:36 INR 1.02 (0.87-1.13) 07/06/17 07:36 APTT 37.1 Sec. (24.2-36.6) H 07/06/17 07:36 Thrombin Time 17.9 Sec. (15.1-19.6) 07/06/17 07:36 Sodium 142 mmol/L (137-145) 07/07/17 05:21 Potassium 4.0 mmol/L (3.6-5.0) D 07/07/17 05:21 Chloride 102.7 mmol/L (98-107) 07/07/17 05:21 Carbon Dioxide 24 mmol/L (22-30) 07/07/17 05:21 Anion Gap 19 mmol/L 07/07/17 05:21 BUN 17 mg/dL (9-20) 07/07/17 05:21 Creatinine 1.3 mg/dL (0.8-1.5) 07/07/17 05:21 Estimated GFR > 60 ml/min 07/07/17 05:21 BUN/Creatinine Ratio 13.07 % 07/07/17 05:21 Glucose 94 mg/dL (75-100) 07/07/17 05:21 POC Glucose 84 (70-105) 07/06/17 13:07 Hemoglobin A1c 5.6 % (4-6) 07/07/17 05:21 Calcium 9.3 mg/dL (8.4-10.2) 07/07/17 05:21 Magnesium 2.20 mg/dL (1.7-2.3) 07/06/17 07:36 Total Creatine Kinase 227 units/L (55-170) H 07/06/17 23:20 CK-MB (CK-2) 2.8 ng/mL (0.0-4.0) 07/06/17 23:20 CK-MB (CK-2) Rel Index 1.2 (0-4) 07/06/17 23:20 Troponin T < 0.010 ng/mL (0.00-0.029) 07/06/17 07:36 Urine Color Straw (Yellow) 07/06/17 07:30 Urine Turbidity Clear (Clear) 07/06/17 07:30 Urine pH 7.0 (5.0-7.0) 07/06/17 07:30 Ur Specific [place] 1.010 (1.003-1.030) 07/06/17 07:30 Urine Protein 30 mg/dl mg/dL (Negative) 07/06/17 07:30 Urine Glucose (UA) Neg mg/dL (Negative) 07/06/17 07:30 Urine Ketones Tr mg/dL (Negative) 07/06/17 07:30 Urine Blood Sm (Negative) 07/06/17 07:30 Urine Nitrite Neg (Negative) 07/06/17 07:30 Urine Bilirubin Neg (Negative) 07/06/17 07:30 Urine Urobilinogen < 2.0 mg/dL (<2.0) 07/06/17 07:30 Ur Leukocyte Esterase Neg (Negative) 07/06/17 07:30 Urine WBC (Auto) 1.0 /HPF (0.0-6.0) 07/06/17 07:30 Urine RBC (Auto) 3.0 /HPF (0.0-6.0) 07/06/17 07:30 Urine Mucus Few /HPF 07/06/17 07:30 Urine Opiates Screen Presumptive negative 07/06/17 07:30 Urine Methadone Screen Presumptive negative 07/06/17 07:30 Ur Barbiturates Screen Presumptive negative 07/06/17 07:30 Ur Phencyclidine Scrn Presumptive negative 07/06/17 07:30 Ur Amphetamines Screen Presumptive negative 07/06/17 07:30 U Benzodiazepines Scrn Presumptive negative 07/06/17 07:30 Urine Cocaine Screen Presumptive negative 07/06/17 07:30 U Marijuana (THC) Screen Presumptive negative 07/06/17 07:30 Drugs of Abuse Note Disclamer 07/06/17 07:30 Plasma/Serum Alcohol < 0.01 gm% (0-0.07) 07/06/17 07:36
[2017-07-10] MEDS: D5NS 1,000 ML IV SCH (19:23)
[2017-07-11] MEDS ORDERED: APRESOLINE IV ONE (02:22)
[2017-07-11] MEDS: CATAPRES PO SCH ×2 (09:37→22:11)
[2017-07-11] MEDS: ASPIRIN PO SCH (09:37)
[2017-07-11] MEDS: LOVENOX SUB-Q SCH (09:38)
--- NOTE | 2017-07-11 11:04 | Consultation ---
History of Present Illness - Reason for Consult Consult date: 07/11/17 MRA brain findings of decreased flow in the right ICA at the syphon Requesting physician: AVANI ZHAO - History of Present Illness Patient with h/o CVA x 2 and left hemiparesis was amitted for AMS s/p syncope. MRA brain showed decreased flow in the intracranial ICA. Vascular surgery was consulted. Medications and Allergies Allergies Allergy/AdvReac Type Severity Reaction Status Date / Time Penicillins Allergy Rash Verified 07/12/13 14:56 Home Medications Medication Instructions Recorded Confirmed Last Taken Type cloNIDine [Catapres] 0.2 mg PO BID #28 tablet 07/12/13 07/07/17 Unknown Rx Aspirin [Adult Low Dose Aspirin EC] 81 mg PO DAILY #30 tablet. 07/10/17 Unknown Rx AtorvaSTATin [Lipitor] 80 mg PO QHS #30 tablet 07/10/17 Unknown Rx HYDROcodone/APAP 5-325 [[place] 1 each PO Q6HR PRN #20 tablet 07/10/17 Unknown Rx 5-325 mg TAB] Active Meds: Active Medications Acetaminophen (Tylenol) 650 mg PO Q4H PRN PRN Reason: Pain MILD(1-3)/Fever >100.5/CHANG Aspirin (Aspirin) 325 mg PO QDAY [facility] Last Admin: 07/11/17 09:37 Dose: 325 mg Atorvastatin Calcium (Lipitor) 80 mg PO QHS [facility] Last Admin: 07/10/17 22:54 Dose: 80 mg Bisacodyl (Dulcolax) 10 mg [place] QDAY PRN PRN Reason: Constipation unrelieved by MOM Clonidine HCl (Catapres) 0.2 mg PO BID [facility] Last Admin: 07/11/17 09:37 Dose: 0.2 mg Enoxaparin Sodium (Lovenox) 40 mg SUB-Q QDAY [facility] Last Admin: 07/11/17 09:38 Dose: 40 mg Hydromorphone HCl (Dilaudid) 0.5 mg IV Q3H PRN PRN Reason: Pain , Severe (7-10) Dextrose/Sodium Chloride (D5ns) 1,000 mls @ 75 mls/hr IV DIRECT [facility] Last Admin: 07/10/17 19:23 Dose: 75 mls/hr Magnesium Hydroxide (Milk Of Magnesia) 30 ml PO Q4H PRN PRN Reason: Constipation Ondansetron HCl (Zofran) 4 mg IV Q8H PRN PRN Reason: N/V unrelieved by Reglan Oxycodone/Acetaminophen (Percocet 5/325) 1 tab PO Q6H PRN PRN Reason: Pain, Moderate (4-6) Review of Systems ROS unobtainable: due to mental status Exam - Constitutional Vitals: Temp Pulse Resp BP Pulse Ox 98.8 F 128 H 20 189/106 94 07/11/17 08:33 07/11/17 09:37 07/11/17 08:33 07/11/17 09:37 07/11/17 08:33 - Cardiovascular Heart Sounds: Present: S1 & S2 - Extremities Extremities: no ischemia, pulses symmetrical Results - Labs CBC & Chem 7: 07/07/17 05:21 07/07/17 05:21 Assessment and Plan Patient admitted for AMS, h/o CVA with left hemiparesis MRI brain showed acute/subacute strokes will order carotid duplex to get information of possible extracranial carotid disease.
--- NOTE | 2017-07-11 12:49 | Progress Note ---
Assessment and Plan Alteration of mental status Head CT reports no acute intracranial process Recurrent CVA MRI brain reports acute/subacute infarcts Right internal carotid artery stenosis Hypertension -uncontrolled Asymptomatic sinus bradycardia noted on clonidine 0.2mg twice a day Echocardiogram reports an LVEF 45-50%. Subjective Date of service: 07/11/17 Principal diagnosis: AMS and Syncope /Collapse Interval history: No cardiac events overnight. Noted persistently elevated blood pressure. Physical therapy at bedside. Objective Vital Signs Temp Pulse Resp BP BP Pulse Ox 07/11/17 09:37 128 H 189/106 07/11/17 08:33 98.8 F 128 H 20 189/106 94 07/11/17 03:50 97.5 F L 88 20 193/103 98 07/11/17 02:41 75 182/112 07/11/17 00:51 53 L 91 07/11/17 00:50 98.5 F 54 L 20 174/98 92 07/10/17 22:54 57 L 173/96 07/10/17 22:00 48 L 20 07/10/17 20:38 98.0 F 95 H 20 206/115 206/115 97 07/10/17 17:16 98.2 F 66 20 176/95 96 - Physical Examination General: No Apparent Distress HEENT: Positive: PERRL Cardiac: Positive: Reg Rate and Rhythm - Imaging and Cardiology EKG: report reviewed
[2017-07-11] MEDS: D5NS 1,000 ML IV SCH (13:05)
--- NOTE | 2017-07-11 14:46 | Progress Note ---
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 Patient was last seen yesterday evening about 8 PM after dinner. Sometime during the night patient fell on a floor. Patient does not know how he ended up from the floor and does not falling or passing out. He doesn't know how long he was on the floor. He denies any pain. Patient has some mild confusion. Initially states year is 1917 but then corrects to 2017. Patient states he does not know where his blood pressure medications are. Cannot recall his last dose thinks he took it yesterday. Family states that his mild confusion and memory deficit are new symptoms. Right sided cva with severe [place] carotid stenosis * asa, statin, bp control * Neurology resconulsted * vascaular surgery consult * Neck MRI to better evaluate carotid arteries. LEFT SIDED HEMIPLEGIA * secondary to cva * PT/OT eval Acute Encephalopathy * secondary to CVA * POSSIBLY UNDERLYING DEMENTIA-pSYCH FOLLOW UP OUTPATIENT Bradycardia * Cardiology input noted. FALL * PT/OT- RECOMMENDED SNF Hypokalemia * Potassium supplement given Syncope and Collapse * 40-45% EF with diastolic dysfunction * no severe arotic stenosis HTN * Cont Clonidine DVT/GI Prophy Hold discharge until evaluated by vascular. . History Interval history: Patient seen and examined, confused, adamant about going home. still intermittently confused Hospitalist Physical - Physical exam Narrative exam: VITAL SIGNS: Reviewed. GENERAL: The patient appeared well nourished and normally developed. Vital signs as documented. HEAD: No signs of head trauma. EYES: Pupils are equal. Extraocular motions intact. EARS: Hearing grossly intact. MOUTH: Oropharynx is normal. NECK: No adenopathy, no JVD. CHEST: Chest with clear breath sounds bilaterally. No wheezes, rales, or rhonchi. CARDIAC: Regular rate and rhythm. S1 and S2, without murmurs, gallops, or rubs. VASCULAR: No Edema. Peripheral pulses normal and equal in all extremities. ABDOMEN: Soft, without detectable tenderness. No sign of distention. No rebound or guarding, and no masses palpated. Bowel Sounds normal. MUSCULOSKELETAL: Good range of motion of all major joints. Extremities without clubbing, cyanosis or edema. NEUROLOGIC EXAM: Alert and oriented x 1. left sided motor strenght 4/5. Speech normal. Follows commands. PSYCHIATRIC: Mood normal. SKIN: No rash or lesions. - Constitutional Vitals: Temp Pulse Resp BP Pulse Ox 98.8 F 68 18 152/96 97 07/11/17 12:00 07/11/17 12:00 07/11/17 12:00 07/11/17 12:00 07/11/17 12:00 General appearance: Present: no acute distress, well-nourished Results - Labs CBC & Chem 7: 07/07/17 05:21 07/07/17 05:21 Labs: Laboratory Last Values WBC 8.4 K/mm3 (4.5-11.0) 07/07/17 05:21 RBC 5.53 M/mm3 (3.65-5.03) H 07/07/17 05:21 Hgb 14.3 gm/dl (11.8-15.2) 07/07/17 05:21 Hct 43.1 % (35.5-45.6) 07/07/17 05:21 MCV 78 fl (84-94) L 07/07/17 05:21 MCH 26 pg (28-32) L 07/07/17 05:21 MCHC 33 % (32-34) 07/07/17 05:21 RDW 17.3 % (13.2-15.2) H 07/07/17 05:21 Plt Count 574 K/mm3 (140-440) H 07/07/17 05:21 Lymph % (Auto) 19.4 % (13.4-35.0) 07/07/17 05:21 [place] % (Auto) 5.8 % (0.0-7.3) 07/07/17 05:21 Eos % (Auto) 1.1 % (0.0-4.3) 07/07/17 05:21 Baso % (Auto) 1.0 % (0.0-1.8) 07/07/17 05:21 Lymph # 1.6 K/mm3 (1.2-5.4) 07/07/17 05:21 [place] # 0.5 K/mm3 (0.0-0.8) 07/07/17 05:21 Eos # 0.1 K/mm3 (0.0-0.4) 07/07/17 05:21 Baso # 0.1 K/mm3 (0.0-0.1) 07/07/17 05:21 Seg Neutrophils % 72.7 % (40.0-70.0) H 07/07/17 05:21 Seg Neutrophils # 6.1 K/mm3 (1.8-7.7) 07/07/17 05:21 PT 13.9 Sec. (12.2-14.9) 07/06/17 07:36 INR 1.02 (0.87-1.13) 07/06/17 07:36 APTT 37.1 Sec. (24.2-36.6) H 07/06/17 07:36 Thrombin Time 17.9 Sec. (15.1-19.6) 07/06/17 07:36 Sodium 142 mmol/L (137-145) 07/07/17 05:21 Potassium 4.0 mmol/L (3.6-5.0) D 07/07/17 05:21 Chloride 102.7 mmol/L (98-107) 07/07/17 05:21 Carbon Dioxide 24 mmol/L (22-30) 07/07/17 05:21 Anion Gap 19 mmol/L 07/07/17 05:21 BUN 17 mg/dL (9-20) 07/07/17 05:21 Creatinine 1.3 mg/dL (0.8-1.5) 07/07/17 05:21 Estimated GFR > 60 ml/min 07/07/17 05:21 BUN/Creatinine Ratio 13.07 % 07/07/17 05:21 Glucose 94 mg/dL (75-100) 07/07/17 05:21 POC Glucose 84 (70-105) 07/06/17 13:07 Hemoglobin A1c 5.6 % (4-6) 07/07/17 05:21 Calcium 9.3 mg/dL (8.4-10.2) 07/07/17 05:21 Magnesium 2.20 mg/dL (1.7-2.3) 07/06/17 07:36 Total Creatine Kinase 227 units/L (55-170) H 07/06/17 23:20 CK-MB (CK-2) 2.8 ng/mL (0.0-4.0) 07/06/17 23:20 CK-MB (CK-2) Rel Index 1.2 (0-4) 07/06/17 23:20 Troponin T < 0.010 ng/mL (0.00-0.029) 07/06/17 07:36 Urine Color Straw (Yellow) 07/06/17 07:30 Urine Turbidity Clear (Clear) 07/06/17 07:30 Urine pH 7.0 (5.0-7.0) 07/06/17 07:30 Ur Specific [place] 1.010 (1.003-1.030) 07/06/17 07:30 Urine Protein 30 mg/dl mg/dL (Negative) 07/06/17 07:30 Urine Glucose (UA) Neg mg/dL (Negative) 07/06/17 07:30 Urine Ketones Tr mg/dL (Negative) 07/06/17 07:30 Urine Blood Sm (Negative) 07/06/17 07:30 Urine Nitrite Neg (Negative) 07/06/17 07:30 Urine Bilirubin Neg (Negative) 07/06/17 07:30 Urine Urobilinogen < 2.0 mg/dL (<2.0) 07/06/17 07:30 Ur Leukocyte Esterase Neg (Negative) 07/06/17 07:30 Urine WBC (Auto) 1.0 /HPF (0.0-6.0) 07/06/17 07:30 Urine RBC (Auto) 3.0 /HPF (0.0-6.0) 07/06/17 07:30 Urine Mucus Few /HPF 07/06/17 07:30 Urine Opiates Screen Presumptive negative 07/06/17 07:30 Urine Methadone Screen Presumptive negative 07/06/17 07:30 Ur Barbiturates Screen Presumptive negative 07/06/17 07:30 Ur Phencyclidine Scrn Presumptive negative 07/06/17 07:30 Ur Amphetamines Screen Presumptive negative 07/06/17 07:30 U Benzodiazepines Scrn Presumptive negative 07/06/17 07:30 Urine Cocaine Screen Presumptive negative 07/06/17 07:30 U Marijuana (THC) Screen Presumptive negative 07/06/17 07:30 Drugs of Abuse Note Disclamer 07/06/17 07:30 Plasma/Serum Alcohol < 0.01 gm% (0-0.07) 07/06/17 07:36
--- NOTE | 2017-07-11 15:26 | Event Note ---
Date: 07/11/17 Carotid duplex performed. As per preliminary review, Right internal carotid artery occluded. Left sided internal carotid without hemodynamically significant stenosis. No vascular intervention needed at this time. He will need to monitor contralateral carotid with carotid duplexes every 1year. continue management as per neurology and primary team.
--- NOTE | 2017-07-11 16:11 | Consultation ---
History of Present Illness - Reason for Consult Consult date: 07/11/17 stroke - History of Present Illness went over the message and reviewed the MRI/MRA the MRI shows hypertensive infarct changes along the periventricular area on the right side the MRA shows carotid siphon stenosis which is svere treatment with plavix/ asparin/ lipitor 80m do not recommend coumadin for this carotid siphon is very very hard to image on ther MRA so true stenosis hard to calculate IMO Medications and Allergies Allergies Allergy/AdvReac Type Severity Reaction Status Date / Time Penicillins Allergy Rash Verified 07/12/13 14:56 Home Medications Medication Instructions Recorded Confirmed Last Taken Type cloNIDine [Catapres] 0.2 mg PO BID #28 tablet 07/12/13 07/07/17 Unknown Rx Aspirin [Adult Low Dose Aspirin EC] 81 mg PO DAILY #30 tablet. 07/10/17 Unknown Rx AtorvaSTATin [Lipitor] 80 mg PO QHS #30 tablet 07/10/17 Unknown Rx HYDROcodone/APAP 5-325 [[place] 1 each PO Q6HR PRN #20 tablet 07/10/17 Unknown Rx 5-325 mg TAB] Active Meds: Active Medications Acetaminophen (Tylenol) 650 mg PO Q4H PRN PRN Reason: Pain MILD(1-3)/Fever >100.5/CHANG Aspirin (Aspirin) 325 mg PO QDAY [facility] Last Admin: 07/11/17 09:37 Dose: 325 mg Atorvastatin Calcium (Lipitor) 80 mg PO QHS [facility] Last Admin: 07/10/17 22:54 Dose: 80 mg Bisacodyl (Dulcolax) 10 mg [place] QDAY PRN PRN Reason: Constipation unrelieved by MOM Clonidine HCl (Catapres) 0.2 mg PO BID [facility] Last Admin: 07/11/17 09:37 Dose: 0.2 mg Enoxaparin Sodium (Lovenox) 40 mg SUB-Q QDAY [facility] Last Admin: 07/11/17 09:38 Dose: 40 mg Hydromorphone HCl (Dilaudid) 0.5 mg IV Q3H PRN PRN Reason: Pain , Severe (7-10) Dextrose/Sodium Chloride (D5ns) 1,000 mls @ 75 mls/hr IV DIRECT [facility] Last Admin: 07/11/17 13:05 Dose: 75 mls/hr Magnesium Hydroxide (Milk Of Magnesia) 30 ml PO Q4H PRN PRN Reason: Constipation Ondansetron HCl (Zofran) 4 mg IV Q8H PRN PRN Reason: N/V unrelieved by Reglan Oxycodone/Acetaminophen (Percocet 5/325) 1 tab PO Q6H PRN PRN Reason: Pain, Moderate (4-6) Exam - Constitutional Vitals: Temp Pulse Resp BP Pulse Ox 98.8 F 68 18 152/96 97 07/11/17 12:00 07/11/17 12:00 07/11/17 12:00 07/11/17 12:00 07/11/17 12:00 Results - Labs CBC & Chem 7: 07/07/17 05:21 07/07/17 05:21
--- NOTE | 2017-07-12 08:33 | Progress Note ---
Assessment and Plan Alteration of mental status Head CT reports no acute intracranial process Recurrent CVA MRI brain reports acute/subacute infarcts Right internal carotid artery stenosis Hypertension Asymptomatic sinus bradycardia noted on clonidine 0.2mg twice a day Echocardiogram reports an LVEF 45-50%. Conservative cardiac management. Subjective Date of service: 07/12/17 Principal diagnosis: AMS and Syncope /Collapse Interval history: Patient is resting in bed comfortably. No cardiac events overnight. Objective Vital Signs Temp Pulse Resp BP BP Pulse Ox 07/12/17 08:13 98.3 F 66 18 160/97 97 07/11/17 22:11 58 L 178/100 07/11/17 22:08 98.0 F 58 L 18 178/100 07/11/17 22:00 20 97 07/11/17 19:59 98.8 F 68 16 205/116 97 07/11/17 16:30 97.8 F 70 19 157/91 97 07/11/17 12:00 98.8 F 68 18 152/96 97 07/11/17 10:00 68 07/11/17 09:37 128 H 189/106 07/11/17 08:33 98.8 F 128 H 20 189/106 94 - Physical Examination General: No Apparent Distress Cardiac: Positive: Reg Rate and Rhythm - Imaging and Cardiology EKG: report reviewed
[2017-07-12] MEDS ORDERED: APRESOLINE IV PRN (09:52)
[2017-07-12] MEDS ORDERED: PROCARDIA XL PO SCH (10:00)
[2017-07-12 11:00] VITALS: BP 153/82
[2017-07-12] MEDS: CATAPRES PO SCH (11:00)
[2017-07-12] MEDS: ASPIRIN PO SCH (11:00)
[2017-07-12] MEDS: LOVENOX SUB-Q SCH (11:01)
== END 2017-07-12 14:25 | DRG 64 ==
LOC: ED 06:06 → 4A 12:54 → UNDODISIN 07-11 14:45 → 3A 07-11 15:59
PROVIDERS: ADMIT Internal Medicine; ATTEND Internal Medicine
DX: I63.231 Cerebral infarction due to unspecified occlusion or stenosis of right carotid arteries (principal); G93.40 Encephalopathy, unspecified; G81.94 Hemiplegia, unspecified affecting left nondominant side; I10 Essential (primary) hypertension; E87.6 Hypokalemia; R00.1 Bradycardia, unspecified; Z88.0 Allergy status to penicillin; Z82.49 Family history of ischemic heart disease and other diseases of the circulatory system; Z79.82 Long term (current) use of aspirin; Z79.899 Other long term (current) drug therapy; W19.XXXA Unspecified fall, initial encounter; Z91.81 History of falling; Y93.9 Activity, unspecified; Y92.9 Unspecified place or not applicable
CPT/HCPCS: 36415; 70450; 70544; 70551; 80048; 80307; 80320; 81001; 82550; 82553; 82962; 83036; 83735; 84484; 85025; 85610; 85670; 85730; 90686; 93005; 93010; 93306; 93880; A9270-GY; G0480; G8978-GP; G8979-GP; J0360; J1650; J2060; J2785; J7042

== ENCOUNTER 2019-07-17 17:30 | Inpatient (IN) | payer MEDICARE ==
--- NOTE | 2019-07-17 19:05 | Emergency Department Report ---
ED General Adult HPI - General Chief complaint: Medical Clearance Stated complaint: LOW HEMOGLOBIN Time Seen by Provider: 07/17/19 18:47 Source: EMS Mode of arrival: Stretcher Limitations: Altered Mental Status - History of Present Illness Initial comments: 68-year-old male with history of CVA, ulcerative colitis sent from [facility] for low hemoglobin of 5.9. Patient states "I don't know" to most questioning. -: unknown Severity scale (0 -10): 0 - Related Data Home Medications Medication Instructions Recorded Confirmed Last Taken Acetaminophen [Acetaminophen TAB] 650 mg PO Q4HR PRN 02/19/19 02/19/19 Unknown Amlodipine Besylate [Norvasc] 10 mg PO QDAY 02/19/19 02/19/19 Unknown Atorvastatin [Lipitor] 80 mg PO QHS 02/19/19 02/19/19 Unknown HYDROcodone/APAP 5-325 [[place] 1 each PO Q4HR PRN 02/19/19 02/19/19 Unknown 5-325 mg TAB] Metoprolol Tartrate 50 mg PO BID 02/19/19 02/19/19 Unknown cloNIDine [Catapres] 0.1 mg PO Q8H PRN 02/19/19 02/19/19 Unknown Previous Rx's Medication Instructions Recorded Last Taken Type Aspirin [Adult Low Dose Aspirin EC] 81 mg PO DAILY #30 tablet. 07/10/17 Unkn own Rx Clopidogrel [Plavix] 75 mg PO QDAY #30 tablet 07/12/17 Unknown Rx NIFEdipine XL [Procardia Xl] 60 mg PO QDAY tablet 02/22/19 Unknown Rx cloNIDine [Catapres] 0.1 mg PO BID tablet 02/22/19 Unknown Rx Allergies Allergy/AdvReac Type Severity Reaction Status Date / Time Penicillins Allergy Rash Verified 07/12/13 14:56 ED Review of Systems ROS: Stated complaint: LOW HEMOGLOBIN Other details as noted in HPI Comment: Unobtainable due to pts medical conditions ED Past Medical Hx - Past Medical History Hx Hypertension: Yes Hx CVA: Yes Hx Congestive Heart Failure: No Hx Diabetes: No Hx Renal Disease: Yes (house fellow mildly elevated on admission; unknown baseline) Hx Asthma: No Hx COPD: No Hx HIV: ([facility]) Additional medical history: CVA with pre-existing right sided weakness - Surgical History Past Surgical History?: Yes Additional Surgical History: Surgical removal of a mole - Social History Smoking Status: Never Smoker Substance Use Type: None - Medications Home Medications: Home Medications Medication Instructions Recorded Confirmed Last Taken Type Aspirin [Adult Low Dose Aspirin EC] 81 mg PO DAILY #30 tablet. 07/10/17 02/19/19 Unknown Rx Clopidogrel [Plavix] 75 mg PO QDAY #30 tablet 07/12/17 02/19/19 Unknown Rx Acetaminophen [Acetaminophen TAB] 650 mg PO Q4HR PRN 02/19/19 02/19/19 Unknown History Amlodipine Besylate [Norvasc] 10 mg PO QDAY 02/19/19 02/19/19 Unknown History Atorvastatin [Lipitor] 80 mg PO QHS 02/19/19 02/19/19 Unknown History HYDROcodone/APAP 5-325 [[place] 1 each PO Q4HR PRN 02/19/19 02/19/19 Unknown History 5-325 mg TAB] Metoprolol Tartrate 50 mg PO BID 02/19/19 02/19/19 Unknown History cloNIDine [Catapres] 0.1 mg PO Q8H PRN 02/19/19 02/19/19 Unknown History NIFEdipine XL [Procardia Xl] 60 mg PO QDAY tablet 02/22/19 Unknown Rx cloNIDine [Catapres] 0.1 mg PO BID tablet 02/22/19 Unknown Rx ED Physical Exam - General Limitations: Altered Mental Status General appearance: alert, in no apparent distress - Head Head exam: Present: atraumatic - Eye Eye exam: Present: normal appearance - ENT ENT exam: Present: mucous membranes moist - Neck Neck exam: Present: normal inspection - Respiratory Respiratory exam: Present: normal lung sounds bilaterally. Absent: respiratory distress - Cardiovascular Cardiovascular Exam: Present: regular rate, normal rhythm - GI/Abdominal GI/Abdominal exam: Present: soft. Absent: distended, tenderness - Rectal Rectal exam: Present: heme (+) stool, black stool, other (melanotic stool on exam) - Extremities Exam Extremities exam: Present: normal inspection - Neurological Exam Neurological exam: Present: alert, motor sensory deficit (left sided weakness due to prior CVA). Absent: oriented X3 (oriented to self) - Psychiatric Psychiatric exam: Present: normal affect, normal mood - Skin Skin exam: Present: warm, dry, intact, normal color ED Course Vital Signs 09/13/19 09/13/19 09/13/19 18:37 18:55 19:09 Temperature 98.7 F 98.6 F Pulse Rate 59 L 59 L 65 Respiratory 18 18 17 Rate Blood Pressure 115/61 Blood Pressure 115/61 115/61 [Right] O2 Sat by Pulse 95 100 Oximetry 07/17/19 07/17/19 07/17/19 19:15 19:45 20:00 Temperature Pulse Rate 62 63 60 Respiratory 15 12 20 Rate Blood Pressure 111/63 111/63 113/59 Blood Pressure [Right] O2 Sat by Pulse 100 Oximetry 07/17/19 07/17/19 07/17/19 20:30 20:45 21:00 Temperature Pulse Rate 66 64 57 L Respiratory 15 30 H 15 Rate Blood Pressure 111/69 118/62 116/62 Blood Pressure [Right] O2 Sat by Pulse 98 98 100 Oximetry 07/17/19 07/17/19 07/17/19 21:15 21:31 21:45 Temperature Pulse Rate 62 61 62 Respiratory 14 13 13 Rate Blood Pressure 116/62 125/81 125/81 Blood Pressure [Right] O2 Sat by Pulse 100 99 Oximetry 07/17/19 07/17/19 07/17/19 22:00 22:15 22:31 Temperature Pulse Rate 61 61 69 Respiratory 12 15 15 Rate Blood Pressure 120/64 125/81 119/60 Blood Pressure [Right] O2 Sat by Pulse 100 100 91 Oximetry 07/17/19 07/17/19 22:41 22:51 Temperature Pulse Rate 72 61 Respiratory 17 16 Rate Blood Pressure 119/60 119/60 Blood Pressure [Right] O2 Sat by Pulse 99 96 Oximetry ED Medical Decision Making - Lab Data Result diagrams: 07/17/19 23:30 07/17/19 19:39 - Medical Decision Making 69 yo M, hx of ulcerative colitis, from [facility] with reported hemoglobin of 5.9. Here, Hb is 6.9. Abdomen soft, nontender. On rectal exam, pt has melena and is guiac positive. Vitals are stable. One unit PRBCs ordered for transfusion. Protonix given. Will admit to hospitalist, Dr Potter, for further management. - Differential Diagnosis anemia, GI bleed, renal failure Critical care attestation.: If time is entered above; I have spent that time in minutes in the direct care of this critically ill patient, excluding procedure time. ED Disposition Clinical Impression: GI bleed, Anemia Disposition: DC- OP ADMIT IP TO THIS HOSP Is pt being admited?: Yes Condition: Stable Time of Disposition: 21:31
[2019-07-17 20:01] LABS: Basophils # (Auto) 0.1 K/mm3 (0.0-0.1); Eosinophils # (Auto) 0.2 K/mm3 (0.0-0.4); Eosinophils % (Auto) 1.9 % (0.0-4.3); Hematocrit 22.3 % (35.5-45.6); Hemoglobin 6.9 gm/dl (11.8-15.2); Lymphocytes # (Auto) 1.9 K/mm3 (1.2-5.4); Lymphocytes % (Auto) 18.3 % (13.4-35.0); Mean Corpuscular HGB Conc 31 % (32-34); Mean Corpuscular Volume 65 fl (84-94); Monocytes # (Auto) 0.5 K/mm3 (0.0-0.8); Monocytes % (Auto) 4.6 % (0.0-7.3); Platelet Count 584 K/mm3 (140-440); Red Blood Count 3.42 M/mm3 (3.65-5.03)
[2019-07-17 20:02] LABS: Red Cell Distribution Width 20.5 % (13.2-15.2)
[2019-07-17 20:11] LABS: INR 1.03 (0.87-1.13)
[2019-07-17 20:12] LABS: Partial Thromboplastin Time 24.5 Sec. (24.2-36.6)
[2019-07-17 20:28] LABS: Alanine Aminotransferase 10 units/L (7-56); BUN/Creatinine Ratio 21; Blood Urea Nitrogen 27 mg/dL (9-20); Calcium 9.2 mg/dL (8.4-10.2); Hemolysis Index 13
[2019-07-17 20:43] LABS: Bilirubin,Direct < 0.2 mg/dL (0-0.2)
[2019-07-17] MEDS ORDERED: NACL 0.9% 500 ML 500 ML IV ONE (21:11)
[2019-07-17] MEDS ORDERED: PROTONIX IV ONE ×2 (21:31→22:35)
--- NOTE | 2019-07-17 21:35 | History and Physical Report ---
History of Present Illness Date of examination: 07/17/19 History of present illness: 68 year old man with a history of hypertension, CVA, dementia was sent to the ER for evaluation of anemia. Blood work was done that shows a hemoglobin of 5.6. He was found to have melanotic stools, he is unable to give a history. 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 07/10/17 02/19/19 Unknown Rx Clopidogrel [Plavix] 75 mg PO QDAY #30 tablet 07/12/17 02/19/19 Unknown Rx Acetaminophen [Acetaminophen TAB] 650 mg PO Q4HR PRN 02/19/19 02/19/19 Unknown History Amlodipine Besylate [Norvasc] 10 mg PO QDAY 02/19/19 02/19/19 Unknown History Atorvastatin [Lipitor] 80 mg PO QHS 02/19/19 02/19/19 Unknown History HYDROcodone/APAP 5-325 [[place] 1 each PO Q4HR PRN 02/19/19 02/19/19 Unknown History 5-325 mg TAB] Metoprolol Tartrate 50 mg PO BID 02/19/19 02/19/19 Unknown History cloNIDine [Catapres] 0.1 mg PO Q8H PRN 02/19/19 02/19/19 Unknown History NIFEdipine XL [Procardia Xl] 60 mg PO QDAY tablet 02/22/19 Unknown Rx cloNIDine [Catapres] 0.1 mg PO BID tablet 02/22/19 Unknown Rx Active Meds: Active Medications Pantoprazole Sodium (Protonix) 80 mg IV ONCE ONE Stop: 07/17/19 21:32 Exam - Physical Exam Narrative exam: General Apperance: The patient sitting in bed no acute distress HEENT: Normocephalic, atraumatic. Pupils equally round and reactive to light, extraocular movement intact, and no sclericterus or JVD or thyromegaly or nodule. Neck supple, no carotid bruit, mucous membranes moist, no exudate or erythema Heart: S1-S2, regular is rhythm Lungs: Clear to auscultation bilaterally, breathing comfortable Abdomen: Positive bowel sounds, soft, nontender, nondistended, no organomegaly Extremities: No edema cyanosis clubbing Skin: no rash, nodule, warm and dry Neuro:CN 2 -12 intact, motor/sensory intact, speech is fluent - Constitutional Vitals: Temp Pulse Resp BP Pulse Ox 98.6 F 62 14 116/62 100 07/17/19 18:55 07/17/19 21:15 07/17/19 21:15 07/17/19 21:15 07/17/19 21:15 Results - Labs CBC & Chem 7: 07/17/19 23:30 07/17/19 19:39 Labs: Abnormal lab results 07/17/19 07/17/19 07/17/19 Range/Units 19:39 19:39 19:39 RBC 3.42 L (3.65-5.03) M/mm3 Hgb 6.9 L (11.8-15.2) gm/dl Hct 22.3 L (35.5-45.6) % MCV 65 L (84-94) fl MCH 20 L (28-32) pg MCHC 31 L (32-34) % RDW 20.5 H (13.2-15.2) % Plt Count 584 H (140-440) K/mm3 Seg Neutrophils % 74.2 H (40.0-70.0) % Chloride 109.0 H (98-107) mmol/L Carbon Dioxide 21 L (22-30) mmol/L BUN 27 H (9-20) mg/dL Alkaline Phosphatase 144 H (35-129) units/L Crossmatch See Detail Assessment and Plan assessment UGIB Blood loss anemia hypertension H/o CVA Dementia Plan Admit to medicine transfuse pack red blood cell check serial hemoglobin, consult GI Start protonix Continue appropiate medications DVT prophalaxis
[2019-07-17] MEDS ORDERED: ZOFRAN IV PRN (21:55)
[2019-07-17] MEDS ORDERED: SODIUM CHLORIDE FLUSH SYRINGE 10 ML IV PRN (21:55)
[2019-07-17] MEDS ORDERED: TYLENOL PO PRN (21:55)
--- NOTE | 2019-07-17 22:35 | XRay Report ---
CHEST 1 VIEW 07/17/2019 10:13 PM INDICATION / CLINICAL INFORMATION: GI bleed. COMPARISON: One view of the chest from 02/19/2019. FINDINGS: The patient is rotated to the left. SUPPORT DEVICES: None. HEART / MEDIASTINUM: No significant abnormality. LUNGS / PLEURA: No significant pulmonary or pleural abnormality. No pneumothorax. ADDITIONAL FINDINGS: No significant additional findings. IMPRESSION: No acute abnormality of the chest. Signer Name: Jaime Hairston MD Signed: 07/17/2019 10:31 PM Workstation Name: [id number]
[2019-07-18 00:02] LABS: Hematocrit 21.1 % (35.5-45.6); Hemoglobin 6.2 gm/dl (11.8-15.2)
[2019-07-18] MEDS ORDERED: NACL 0.9% 250ML 250 ML ONE (01:47)
[2019-07-18] MEDS ORDERED: NACL 0.9% 250ML 250 ML IV ONE (02:13)
[2019-07-18] MEDS: SODIUM CHLORIDE FLUSH SYRINGE 10 ML IV SCH ×3 (05:45→22:17)
[2019-07-18 08:04] LABS: Basophils # (Auto) 0.1 K/mm3 (0.0-0.1); Basophils % (Auto) 1.1 % (0.0-1.8); Eosinophils # (Auto) 0.2 K/mm3 (0.0-0.4); Hematocrit 23.6 % (35.5-45.6); Hemoglobin 7.3 gm/dl (11.8-15.2); Lymphocytes # (Auto) 1.6 K/mm3 (1.2-5.4); Lymphocytes % (Auto) 18.3 % (13.4-35.0); Mean Corpuscular HGB Conc 31 % (32-34); Monocytes # (Auto) 0.4 K/mm3 (0.0-0.8); Monocytes % (Auto) 4.5 % (0.0-7.3); Platelet Count 546 K/mm3 (140-440); Red Blood Count 3.54 M/mm3 (3.65-5.03)
[2019-07-18 08:10] LABS: Mean Corpuscular Volume 67 fl (84-94); Red Cell Distribution Width 21.3 % (13.2-15.2)
[2019-07-18] MEDS ORDERED: NACL 0.9% 500 ML 500 ML IV ONE ×2 (08:16→13:00)
[2019-07-18 08:29] LABS: BUN/Creatinine Ratio 21; Blood Urea Nitrogen 23 mg/dL (9-20); Calcium 8.8 mg/dL (8.4-10.2); Hemolysis Index 0
[2019-07-18] MEDS ORDERED: PROTONIX IV SCH (10:00)
--- NOTE | 2019-07-18 10:37 | Progress Note ---
Assessment and Plan Assessment and plan: UGIB Blood loss anemia hypertension H/o CVA Dementia Plan Admitted to medicine transfused 1 unit packed red blood cell. will transfuse 1 Unit more check serial hemoglobin, consult GI Start protonix Continue appropiate medications DVT prophalaxis For scope today History Interval history: melena patient has dementia, cannot give history Hospitalist Physical - Physical exam Narrative exam: Gen: Not in acute distress, Lying in bed, HEENT: Normocephalic, atraumatic Neck: supple, no JVD Heart: S1 and S2 reg, no murmurs, rubs or gallop Lungs: Clear , no crackles, no wheeze Abd: soft, non tender, non distended, normal BS, Ext: No edema, no clubbing, no cyanosis Neuro: Awake, alert, oriented X 3, no focal neurological signs - Constitutional Vitals: Temp Pulse Resp BP Pulse Ox 98.4 F 67 16 140/81 98 07/18/19 08:33 07/18/19 08:33 07/18/19 08:33 07/18/19 08:33 07/18/19 09:55 Results - Labs CBC & Chem 7: 07/18/19 07:44 07/18/19 07:44 Labs: Laboratory Last Values WBC 9.0 K/mm3 (4.5-11.0) 07/18/19 07:44 RBC 3.54 M/mm3 (3.65-5.03) L 07/18/19 07:44 Hgb 7.3 gm/dl (11.8-15.2) L 07/18/19 07:44 Hct 23.6 % (35.5-45.6) L 07/18/19 07:44 MCV 67 fl (84-94) L 07/18/19 07:44 MCH 21 pg (28-32) L 07/18/19 07:44 MCHC 31 % (32-34) L 07/18/19 07:44 RDW 21.3 % (13.2-15.2) H 07/18/19 07:44 Plt Count 546 K/mm3 (140-440) H 07/18/19 07:44 Lymph % (Auto) 18.3 % (13.4-35.0) 07/18/19 07:44 [place] % (Auto) 4.5 % (0.0-7.3) 07/18/19 07:44 Eos % (Auto) 2.0 % (0.0-4.3) 07/18/19 07:44 Baso % (Auto) 1.1 % (0.0-1.8) 07/18/19 07:44 Lymph # 1.6 K/mm3 (1.2-5.4) 07/18/19 07:44 [place] # 0.4 K/mm3 (0.0-0.8) 07/18/19 07:44 Eos # 0.2 K/mm3 (0.0-0.4) 07/18/19 07:44 Baso # 0.1 K/mm3 (0.0-0.1) 07/18/19 07:44 Seg Neutrophils % 74.1 % (40.0-70.0) H 07/18/19 07:44 Seg Neutrophils # 6.6 K/mm3 (1.8-7.7) 07/18/19 07:44 PT 13.2 Sec. (12.2-14.9) 07/17/19 19:39 INR 1.03 (0.87-1.13) 07/17/19 19:39 APTT 24.5 Sec. (24.2-36.6) 07/17/19 19:39 Sodium 145 mmol/L (137-145) 07/18/19 07:44 Potassium 3.7 mmol/L (3.6-5.0) 07/18/19 07:44 Chloride 110.2 mmol/L (98-107) H 07/18/19 07:44 Carbon Dioxide 22 mmol/L (22-30) 07/18/19 07:44 17 mmol/L 07/18/19 07:44 BUN 23 mg/dL (9-20) H 07/18/19 07:44 1.1 mg/dL (0.8-1.5) 07/18/19 07:44 Estimated GFR > 60 ml/min 07/18/19 07:44 21 % 07/18/19 07:44 Glucose 83 mg/dL (75-100) 07/18/19 07:44 Calcium 8.8 mg/dL (8.4-10.2) 07/18/19 07:44 0.30 mg/dL (0.1-1.2) 07/17/19 19:39 < 0.2 mg/dL (0-0.2) 07/17/19 19:39 0.1 mg/dL 07/17/19 19:39 AST 12 units/L (5-40) 07/17/19 19:39 ALT 10 units/L (7-56) 07/17/19 19:39 144 units/L (35-129) H 07/17/19 19:39 7.8 g/dL (6.3-8.2) 07/17/19 19:39 4.0 g/dL (3.9-5) 07/17/19 19:39 1.1 % 07/17/19 19:39 Blood Type A POSITIVE 07/17/19 19:39 Antibody Screen Negative 07/17/19 19:39 Crossmatch See Detail 07/17/19 19:39 Active Medications - Current Medications Current Medications: Generic Name Dose Route Start Last Admin Trade Name Freq PRN Reason Stop Dose Admin Acetaminophen 650 mg 07/17/19 21:55 Tylenol PO Q4H PRN Pain MILD(1-3)/Fever >100.5/CHANG Ondansetron HCl 4 mg 07/17/19 21:55 Zofran IV Q8H PRN Nausea And Vomiting Pantoprazole Sodium 40 mg 07/18/19 10:00 07/18/19 09:48 Protonix IV 40 mg BID OLIVIA Administration Sodium Chloride 10 ml 07/17/19 22:00 07/18/19 09:48 Sodium Chloride Flush Syringe 10 Ml IV 10 ml BID OLIVIA Administration Sodium Chloride 10 ml 07/17/19 21:55 Sodium Chloride Flush Syringe 10 Ml IV PRN PRN LINE FLUSH
--- NOTE | 2019-07-18 12:38 | Gastroenterology Consultation ---
History of Present Illness - Reason for Consult Consult date: 07/18/19 GI Bleed Requesting physician: HANANE POWELL - History of Present Illness The patient is a 69 yo male admitted [facility] the [facility] with recurrent GI bleeding. He is demented and unable to give a coherent history. Most of the history is per the chart; there is a hx of a brother as NOK but currently there is no contact information. He was noted to have dark stools at the [facility], on ASA and plavix, but no hematemesis or reported N/V/abdominal pain/hematemesis. He was noted to be on protonix via his JAN. 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 A CTA in February showed no diverticulosis or colon lesion. His last BM was in the past 6 hours and dark. Past History Past Medical History: hypertension, stroke, other (Dementia) Past Surgical History: No surgical history Social history: other (Lives in [place]) Family history: no significant family history Medications and Allergies Allergies Allergy/AdvReac Type Severity Reaction Status Date / Time Penicillins Allergy Rash Verified 07/12/13 14:56 Home Medications Medication Instructions Recorded Confirmed Last Taken Type Aspirin [Adult Low Dose Aspirin EC] 81 mg PO DAILY #30 tablet. 07/10/17 02/19/19 Unknown Rx Clopidogrel [Plavix] 75 mg PO QDAY #30 tablet 07/12/17 02/19/19 Unknown Rx Acetaminophen [Acetaminophen TAB] 650 mg PO Q4HR PRN 02/19/19 02/19/19 Unknown History Amlodipine Besylate [Norvasc] 10 mg PO QDAY 02/19/19 02/19/19 Unknown History Atorvastatin [Lipitor] 80 mg PO QHS 02/19/19 02/19/19 Unknown History HYDROcodone/APAP 5-325 [[place] 1 each PO Q4HR PRN 02/19/19 02/19/19 Unknown History 5-325 mg TAB] Metoprolol Tartrate 50 mg PO BID 02/19/19 02/19/19 Unknown History cloNIDine [Catapres] 0.1 mg PO Q8H PRN 02/19/19 02/19/19 Unknown History NIFEdipine XL [Procardia Xl] 60 mg PO QDAY tablet 02/22/19 Unknown Rx cloNIDine [Catapres] 0.1 mg PO BID tablet 02/22/19 Unknown Rx Active Meds: Active Medications Acetaminophen (Tylenol) 650 mg PO Q4H PRN PRN Reason: Pain MILD(1-3)/Fever >100.5/CHANG Dextrose/Sodium Chloride (D5/0.45ns) 1,000 mls @ 75 mls/hr IV DIRECT OLIVIA Sodium Chloride (Nacl 0.9% 500 Ml) 500 mls @ 0 mls/hr IV ONCE ONE Stop: 07/18/19 13:01 Ondansetron HCl (Zofran) 4 mg IV Q8H PRN PRN Reason: Nausea And Vomiting Pantoprazole Sodium (Protonix) 40 mg IV BID [facility] Last Admin: 07/18/19 09:48 Dose: 40 mg Documented by: Sodium Chloride (Sodium Chloride Flush Syringe 10 Ml) 10 ml IV BID [facility] Last Admin: 07/18/19 09:48 Dose: 10 ml Documented by: Sodium Chloride (Sodium Chloride Flush Syringe 10 Ml) 10 ml IV PRN PRN PRN Reason: LINE FLUSH I HAVE REVIEWED AND RECONCILED MEDICATIONS Review of Systems - Review of Systems ROS unobtainable: due to mental status Exam - Constitutional Vital Signs: Temp Pulse Resp BP Pulse Ox 98.4 F 67 16 140/81 98 07/18/19 08:33 07/18/19 08:33 07/18/19 08:33 07/18/19 08:33 07/18/19 09:55 General appearance: no acute distress - EENT Eyes: PERRL, EOM intact ENT: hearing intact, poor dentition, no thrush - Neck Neck: supple, normal ROM - Respiratory Respiratory effort: normal Respiratory: bilateral: CTA - Cardiovascular Rhythm: regular Heart Sounds: Present: S1 & S2 Extremities: no ischemia - Gastrointestinal General gastrointestinal: Present: soft, non-tender, non-distended - Neurologic Neurological: oriented to person, other (Not oriented to place or time. Consistent with prior CVA.) - Labs CBC & Chem 7: 07/18/19 07:44 07/18/19 07:44 Lab Results: Laboratory Results - last 24 hr 07/17/19 07/17/19 07/17/19 19:39 19:39 19:39 WBC 10.3 RBC 3.42 L Hgb 6.9 L Hct 22.3 L MCV 65 L MCH 20 L MCHC 31 L RDW 20.5 H Plt Count 584 H Lymph % (Auto) 18.3 [place] % (Auto) 4.6 Eos % (Auto) 1.9 Baso % (Auto) 1.0 Lymph # 1.9 [place] # 0.5 Eos # 0.2 Baso # 0.1 Seg Neutrophils % 74.2 H Seg Neutrophils # 7.7 PT 13.2 INR 1.03 APTT 24.5 Sodium 144 Potassium 3.7 Chloride 109.0 H Carbon Dioxide 21 L Anion Gap 18 BUN 27 H Creatinine 1.3 Estimated GFR > 60 BUN/Creatinine Ratio 21 Glucose 95 Calcium 9.2 Total Bilirubin 0.30 Direct Bilirubin < 0.2 Indirect Bilirubin 0.1 AST 12 ALT 10 Alkaline Phosphatase 144 H Total Protein 7.8 Albumin 4.0 Albumin/Globulin Ratio 1.1 Blood Type Antibody Screen Crossmatch 07/17/19 07/17/19 07/18/19 19:39 23:30 07:44 WBC 9.0 RBC 3.54 L Hgb 6.2 L 7.3 L Hct 21.1 L 23.6 L MCV 67 L MCH 21 L MCHC 31 L RDW 21.3 H Plt Count 546 H Lymph % (Auto) 18.3 [place] % (Auto) 4.5 Eos % (Auto) 2.0 Baso % (Auto) 1.1 Lymph # 1.6 [place] # 0.4 Eos # 0.2 Baso # 0.1 Seg Neutrophils % 74.1 H Seg Neutrophils # 6.6 PT INR APTT Sodium Potassium Chloride Carbon Dioxide Anion Gap BUN Creatinine Estimated GFR BUN/Creatinine Ratio Glucose Calcium Total Bilirubin Direct Bilirubin Indirect Bilirubin AST ALT Alkaline Phosphatase Total Protein Albumin Albumin/Globulin Ratio Blood Type A POSITIVE Antibody Screen Negative Crossmatch See Detail 07/18/19 07:44 WBC RBC Hgb Hct MCV MCH MCHC RDW Plt Count Lymph % (Auto) [place] % (Auto) Eos % (Auto) Baso % (Auto) Lymph # [place] # Eos # Baso # Seg Neutrophils % Seg Neutrophils # PT INR APTT Sodium 145 Potassium 3.7 Chloride 110.2 H Carbon Dioxide 22 Anion Gap 17 BUN 23 H Creatinine 1.1 Estimated GFR > 60 BUN/Creatinine Ratio 21 Glucose 83 Calcium 8.8 Total Bilirubin Direct Bilirubin Indirect Bilirubin AST ALT Alkaline Phosphatase Total Protein Albumin Albumin/Globulin Ratio Blood Type Antibody Screen Crossmatch Assessment and Plan - Patient Problems (1) Acute GI bleeding Current Visit: Yes Status: Acute Plan to address problem: - 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 - Will hold ASA and plavix; perform EGD today. - Protonix not on home med profile; will restart. - Consider colonoscopy based on results of EGD (prior to resumption of DAPT) given acute on chronic anemia.
[2019-07-18] MEDS ORDERED: DIPRIVAN 10 MG/ML IV ONE (13:41)
[2019-07-18] MEDS ORDERED: NACL 0.9% 1000 ML 1,000 ML ONE (15:16)
--- NOTE | 2019-07-18 15:21 | Anesthesia Day of Surgery ---
Anesthesia Day of Surgery - Day of Surgery Patient Examined: Yes Patient H&P Reviewed: Yes Patient is NPO: Yes
--- NOTE | 2019-07-18 15:23 | Anesthesia Consultation ---
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 Blood work was done that shows a hemoglobin of 5.6. He was found to have melanotic stools, he is unable to give a history. He had a dieulafoy appearing lesion in d uodenal bulb s/p clip placement on 02/19.Patient unable to give a history. PAST MEDICAL HISTORY:hypertension, CVA, dementia. PAST SURGICAL HISTORY:Unknown. FAMILY HISTORY: hypertension, CVA, dementia. SOCIAL HISTORY: [facility] patient
[2019-07-18] MEDS ORDERED: XYLOCAINE MPF 2% ONE (15:30)
--- NOTE | 2019-07-18 15:36 | Post Operative Note ---
Pre-op diagnosis: GI Bleed Post-op diagnosis: same Findings: 1. Normal upper GI tract without bleeding and without clip from prior endoscopy Procedure: EGD Anesthesia: MAC Surgeon: KIKA CARTY Estimated blood loss: none Pathology: none Specimen disposition: other (N/A) Condition: stable Disposition: floor (Recs: 1. Colonoscopy tomorrow. 2. Add MVI and PO protonix. 3. Continue to hold ASA and plavix. 4. May have clears today.)
[2019-07-18] MEDS: D5/0.45NS 1,000 ML IV SCH (16:24)
--- NOTE | 2019-07-18 16:26 | Operative Report ---
PROCEDURE PERFORMED: Esophagogastroduodenoscopy. PREOPERATIVE DIAGNOSIS: Gastrointestinal bleeding of unknown origin. POSTOPERATIVE DIAGNOSES: Normal upper GI tract. ENDOSCOPIST: Sunny Brady M.D. INSTRUMENT: Olympus video endoscope. MEDICATIONS: MAC anesthesia by [facility]. COMPLICATIONS: No apparent complications. ESTIMATED BLOOD LOSS: Minimal. SPECIMENS: No specimen obtained. IMPLANTS: None. ASSISTANTS: None. CONDITION AT COMPLETION: Stable. TECHNIQUE: The patient and his brother were informed of the risks and benefits of the procedure. Due to the patient's history of chronic dementia, his brother gave informed consent. After consent was obtained, the patient was placed in the left lateral decubitus position. The above sedative medications were given. His vital signs remained stable throughout the procedure. The instrument was advanced from the mouth to the second portion of the duodenum under direct visualization. At that point, the bowel was insufflated and the endoscope was slowly withdrawn. FINDINGS: 1. No blood and no blood clots in the upper GI tract. 2. The duodenal bulb was carefully examined and there was no evidence of an endoscopic clip, which had been placed in February 2019; nor was there evidence of a Dieulafoy lesion, which had been present and clipped previously. 3. Otherwise, normal upper GI tract. RECOMMENDATIONS: 1. Colonoscopy tomorrow to further evaluate, and consider capsule endoscopy as an outpatient. 2. Add multivitamin and oral Protonix. 3. Continue to hold aspirin and Plavix. 4. The patient may have clear liquids today. JOB# [id number] SHRUTHI/NTS
[2019-07-18] MEDS ORDERED: GOLYTELY PO ONE (17:00)
--- NOTE | 2019-07-18 17:57 | Post Anesthesia Evaluation ---
- Post Anesthesia Evaluation Patient Participated: Yes Airway Patent: Yes Stable Respiratory Function: Yes Nausea/Vomiting: No Temp > 96.8F: Yes Pain Manageable: Yes Adequeate Hydration: Yes Anesthesia Complications: No Block Receding Appropriately: Not Applicable Patient on Ventilator: No
[2019-07-19 05:25] LABS: Hematocrit 27.1 % (35.5-45.6); Hemoglobin 8.7 gm/dl (11.8-15.2); Mean Corpuscular HGB Conc 32 % (32-34); Platelet Count 540 K/mm3 (140-440); Red Blood Count 3.92 M/mm3 (3.65-5.03)
[2019-07-19 05:26] LABS: Mean Corpuscular Volume 69 fl (84-94); Red Cell Distribution Width 23.5 % (13.2-15.2)
[2019-07-19 05:48] LABS: BUN/Creatinine Ratio 11; Blood Urea Nitrogen 11 mg/dL (9-20); Calcium 8.7 mg/dL (8.4-10.2); Hemolysis Index 5
[2019-07-19] MEDS: D5/0.45NS 1,000 ML IV SCH ×2 (06:07→19:30)
[2019-07-19] MEDS: KCL 10MEQ/100ML 10 MEQ/100 ML BAG IV SCH ×2 (14:28→15:17)
[2019-07-19] MEDS: SODIUM CHLORIDE FLUSH SYRINGE 10 ML IV SCH ×2 (14:35→21:48)
[2019-07-19] MEDS ORDERED: DIPRIVAN 10 MG/ML IV ONE ×2 (16:53→16:54)
[2019-07-19] MEDS ORDERED: NACL 0.9% 1000 ML 1,000 ML ONE (16:53)
--- NOTE | 2019-07-19 16:53 | Anesthesia Day of Surgery ---
Anesthesia Day of Surgery - Day of Surgery Patient Examined: Yes Patient H&P Reviewed: Yes Patient is NPO: Yes
--- NOTE | 2019-07-19 17:17 | Post Operative Note ---
Pre-op diagnosis: Anemia Post-op diagnosis: other (Poor prep in L colon (impaction) but otherwise negative) Findings: 1. Fecal impaction with brown stool in rectum 2. Fair prep rest of colon 3. No blood/clots/diverticulosis/severe hemorrhoids Procedure: Colonoscopy Anesthesia: MAC Surgeon: KIKA CARTY Estimated blood loss: none Pathology: none Specimen disposition: other (N/A) Condition: stable Disposition: floor (Recs: 1. Would prefer ASA or plavix but not DAPT for CVA prophylaxis. 2. Continue daily protonix. 3. OK to d/c home on regular diet if no problems after feeding. 4. F/U in clinic to consider a capsule endoscopy. 5. Daily Senna given fecal impaction and institutionalized.)
[2019-07-19] MEDS ORDERED: NACL 0.9% 1000 ML 1,000 ML IV SCH (18:00)
[2019-07-19] MEDS: THERAGRAN-M Tab PO SCH (18:37)
[2019-07-19] MEDS: PROTONIX PO SCH (18:37)
--- NOTE | 2019-07-19 18:56 | Operative Report ---
PROCEDURE PERFORMED: Colonoscopy. PREOPERATIVE DIAGNOSIS: Cryptogenic anemia. POSTOPERATIVE DIAGNOSIS: Poor preparation, but otherwise negative except for fecal impaction. ENDOSCOPIST: Sunny Brady MD. INSTRUMENT: Olympus video endoscope. MEDICATIONS: MAC anesthesia by Anesthesia Services. COMPLICATIONS: No apparent complications. ESTIMATED BLOOD LOSS: None. SPECIMENS: None. IMPLANTS: None. ASSISTANTS: None. CONDITION AT COMPLETION: Stable. TECHNIQUE: The patient's brother was informed of the risks and benefits of the procedure. He gave consent due to the patient's dementia. After consent was obtained, the patient was placed in the left lateral decubitus position. The above sedative medications were given. His vital signs remained stable throughout the procedure. The instrument was advanced from the anus to the cecum under direct visualization. The cecum was identified by the appendiceal orifice and the ileocecal valve. At that point, the bowel was insufflated and the endoscope was slowly withdrawn. The quality of preparation was poor in the left colon due to fecal impaction in the rectum, but the rest of the colon had a fair preparation. FINDINGS: 1. Fecal impaction in the rectum with brown solid stool that was removed as possible manually. 2. Fair preparation of the rectum. The rest of the colon with no evidence of active bleeding or blood clots. 3. No diverticulosis or severe hemorrhoids to explain bleeding and no arteriovenous malformations in the right colon. RECOMMENDATIONS: 1. I would prefer aspirin or Plavix for stroke prophylaxis, but not dual antiplatelet therapy. 2. Continue daily Protonix. 3. Okay to discharge the patient home on a regular diet if no problems after feeding, on a multivitamin daily therapy. 4. Follow up in clinic to consider capsule endoscopy. 5. Daily Senokot given his fecal impaction and that the patient is institutionalized. JOB# [id number] SHRUTHI/NTS
[2019-07-19] MEDS: SENOKOT S PO SCH (21:48)
[2019-07-20 08:28] LABS: Hematocrit 24.6 % (35.5-45.6); Hemoglobin 7.9 gm/dl (11.8-15.2); Mean Corpuscular HGB Conc 32 % (32-34); Platelet Count 522 K/mm3 (140-440)
[2019-07-20 08:38] LABS: Mean Corpuscular Volume 68 fl (84-94); Red Cell Distribution Width 24.4 % (13.2-15.2)
--- NOTE | 2019-07-20 08:46 | Progress Note ---
Assessment and Plan Assessment and plan: UGIB Acute Blood loss anemia hypertension H/o CVA with residual left sided weakness Dementia Plan Admitted to medicine transfused total 2 units packed red blood cell. For Colonoscopy today GI Physician following check serial hemoglobin, Start protonix Continue appropiate medications DVT prophalaxis History Interval history: melena patient has dementia, cannot give history Hospitalist Physical - Physical exam Narrative exam: Gen: Not in acute distress, Lying in bed, HEENT: Normocephalic, atraumatic Neck: supple, no JVD Heart: S1 and S2 reg, no murmurs, rubs or gallop Lungs: Clear , no crackles, no wheeze Abd: soft, non tender, non distended, normal BS, Ext: No edema, no clubbing, no cyanosis Neuro: Awake, alert, residual left sided weakness - Constitutional Vitals: Temp Pulse Resp BP Pulse Ox 98 F 78 18 156/68 94 07/20/19 05:11 07/20/19 05:11 07/20/19 05:11 07/20/19 05:11 07/20/19 05:11 Results - Labs CBC & Chem 7: 07/20/19 07:42 07/19/19 04:57 Labs: Laboratory Last Values WBC 9.1 K/mm3 (4.5-11.0) 07/20/19 07:42 RBC 3.60 M/mm3 (3.65-5.03) L 07/20/19 07:42 Hgb 7.9 gm/dl (11.8-15.2) L 07/20/19 07:42 Hct 24.6 % (35.5-45.6) L 07/20/19 07:42 MCV 68 fl (84-94) L 07/20/19 07:42 MCH 22 pg (28-32) L 07/20/19 07:42 MCHC 32 % (32-34) 07/20/19 07:42 RDW 24.4 % (13.2-15.2) H 07/20/19 07:42 Plt Count 522 K/mm3 (140-440) H 07/20/19 07:42 Lymph % (Auto) 18.3 % (13.4-35.0) 07/18/19 07:44 [place] % (Auto) 4.5 % (0.0-7.3) 07/18/19 07:44 Eos % (Auto) 2.0 % (0.0-4.3) 07/18/19 07:44 Baso % (Auto) 1.1 % (0.0-1.8) 07/18/19 07:44 Lymph # 1.6 K/mm3 (1.2-5.4) 07/18/19 07:44 [place] # 0.4 K/mm3 (0.0-0.8) 07/18/19 07:44 Eos # 0.2 K/mm3 (0.0-0.4) 07/18/19 07:44 Baso # 0.1 K/mm3 (0.0-0.1) 07/18/19 07:44 Seg Neutrophils % 74.1 % (40.0-70.0) H 07/18/19 07:44 Seg Neutrophils # 6.6 K/mm3 (1.8-7.7) 07/18/19 07:44 PT 13.2 Sec. (12.2-14.9) 07/17/19 19:39 INR 1.03 (0.87-1.13) 07/17/19 19:39 APTT 24.5 Sec. (24.2-36.6) 07/17/19 19:39 Sodium 140 mmol/L (137-145) 07/19/19 04:57 Potassium 3.4 mmol/L (3.6-5.0) L 07/19/19 04:57 Chloride 104.4 mmol/L (98-107) 07/19/19 04:57 Carbon Dioxide 22 mmol/L (22-30) 07/19/19 04:57 17 mmol/L 07/19/19 04:57 BUN 11 mg/dL (9-20) 07/19/19 04:57 1.0 mg/dL (0.8-1.5) 07/19/19 04:57 Estimated GFR > 60 ml/min 07/19/19 04:57 11 % 07/19/19 04:57 Glucose 96 mg/dL (75-100) 07/19/19 04:57 POC Glucose 92 (70-105) 07/20/19 07:35 Calcium 8.7 mg/dL (8.4-10.2) 09/15/19 04:57 0.30 mg/dL (0.1-1.2) 07/17/19 19:39 < 0.2 mg/dL (0-0.2) 07/17/19 19:39 0.1 mg/dL 07/17/19 19:39 AST 12 units/L (5-40) 07/17/19 19:39 ALT 10 units/L (7-56) 07/17/19 19:39 144 units/L (35-129) H 07/17/19 19:39 7.8 g/dL (6.3-8.2) 07/17/19 19:39 4.0 g/dL (3.9-5) 07/17/19 19:39 1.1 % 07/17/19 19:39 Blood Type A POSITIVE 07/17/19 19:39 Antibody Screen Negative 07/17/19 19:39 Crossmatch See Detail 07/17/19 19:39 Active Medications - Current Medications Current Medications: Generic Name Dose Route Start Last Admin Trade Name Nakulq PRN Reason Stop Dose Admin Acetaminophen 650 mg 07/17/19 21:55 Tylenol PO Q4H PRN Pain MILD(1-3)/Fever >100.5/CHANG Dextrose/Sodium Chloride 1,000 mls @ 75 mls/hr 07/18/19 12:00 07/19/19 19:30 D5/0.45ns IV 75 mls/hr DIRECT OLIVIA Administration Multivitamins/Minerals 1 each 07/19/19 10:00 07/19/19 18:37 Theragran-M Tab PO 1 each QDAY OLIVIA Administration Ondansetron HCl 4 mg 07/17/19 21:55 07/19/19 21:55 Zofran IV 4 mg Q8H PRN Administration Nausea And Vomiting Pantoprazole Sodium 40 mg 07/19/19 10:00 07/19/19 18:37 Protonix PO 40 mg QDAY OLIVIA Administration Senna/Docusate Sodium 1 tab 07/19/19 22:00 07/19/19 21:48 Senokot S PO 1 tab QHS OLIVIA Administration Sodium Chloride 10 ml 07/17/19 22:00 07/19/19 21:48 Sodium Chloride Flush Syringe 10 Ml IV 10 ml BID OLIVIA Administration Sodium Chloride 10 ml 07/17/19 21:55 Sodium Chloride Flush Syringe 10 Ml IV PRN PRN LINE FLUSH
[2019-07-20] MEDS: SODIUM CHLORIDE FLUSH SYRINGE 10 ML IV SCH ×2 (10:34→21:18)
[2019-07-20] MEDS: PROTONIX PO SCH (10:34)
[2019-07-20] MEDS: THERAGRAN-M Tab PO SCH (10:34)
[2019-07-20] MEDS ORDERED: FLUSH HEPARIN IV ONE (10:39)
--- NOTE | 2019-07-20 11:10 | Gastroenterology Progress Note ---
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 - s/p repeat EGD 07/18/19 with normal upper GI tract noted (w/o bleeding or clip from prior endoscopy) - s/p colonoscopy yesterday 07/19/19 that showed fecal impaction with brown stool in rectum and fair prep rest of colon but no blood/clots/diverticulosis/severe hemorrhoids - clinically, patient is stable w/o GI complaints of abd pain or N/V, but given drop in H/H this am will order bleeding scan to r/o active bleed - continue to hold ASA and plavix - continue PPI, MVI,and senna - consider pill cam as outpatient - continue supportive care - further recommendations to follow pending bleeding scan results Subjective Date of service: 07/20/19 Principal diagnosis: anemia Interval history: No acute distress. No active signs of bleeding this am per nursing. Objective - Constitutional Vitals: Temp Pulse Resp BP Pulse Ox 98.7 F 61 20 138/76 98 07/20/19 08:37 07/20/19 08:37 07/20/19 08:37 07/20/19 08:37 07/20/19 08:37 General appearance: no acute distress - Respiratory Respiratory effort: normal - Cardiovascular Rhythm: regular - Gastrointestinal General gastrointestinal: Present: soft, non-tender, non-distended, normal bowel sounds - Labs CBC & Chem 7: 07/20/19 07:42 07/19/19 04:57 Labs: Laboratory Results - last 24 hr 07/19/19 07/19/19 07/20/19 12:37 21:19 07:35 WBC RBC Hgb Hct MCV MCH MCHC RDW Plt Count POC Glucose 118 H 114 H 92 07/20/19 07:42 WBC 9.1 RBC 3.60 L Hgb 7.9 L Hct 24.6 L MCV 68 L MCH 22 L MCHC 32 RDW 24.4 H Plt Count 522 H POC Glucose
--- NOTE | 2019-07-20 13:15 | Nuclear Medicine Report ---
ACUTE GI BLOOD LOSS IMAGING HISTORY: GI bleed and dementia with no reliable history. COMPARISON: None. TECHNIQUE: After injection of autologous RBCs labeled in vitro with Tc-99m pertechnetate, sequential dynamic images of the abdomen were obtained for 60 minutes. These images were viewed in a cine displ ay. RADIOPHARMACEUTICAL: 20.0 mCi of [id number]-fqtukelbrqwis-labeled RBCs FINDINGS: 1 hour dynamic imaging: Normal distribution of activity within the labeled blood pool with visualizat ion of the heart, liver, spleen, and genitourinary tract. Normal vessels are identified. An abnorma l focus of activity is identified in the midline pelvis thinning at 26 minutes and there is progressi ve increase in activity up to 55 minutes. The position of the activity is fixed on all images. IMPRESSION: 1. Evidence of active GI bleeding is likely in the sigmoid colon. Sensitivity of this study is approximately 0.5-1 ml active GI bleeding/minute. Signer Name: Carlos Davalos MD Signed: 07/20/2019 1:10 PM Workstation Name: [id number]
--- NOTE | 2019-07-20 13:45 | Event Note ---
Date: 07/20/[address] Davalos that bleeding scan was positive for likely bleeding in sigmoid colon. I reviewed study with IR (Dr. Urbano) and Dr. Reece who believe that it is showing bladder activity instead of bleeding. Will order stat CTA for further evaluation as recommended by Dr. Urbano.
[2019-07-20 15:47] LABS: Hematocrit 26.6 % (35.5-45.6); Hemoglobin 8.2 gm/dl (11.8-15.2)
--- NOTE | 2019-07-20 16:31 | Progress Note ---
Assessment and Plan Assessment and plan: Patient is 68 year old man with a history of hypertension, CVA, dementia was sent to the ER for evaluation of anemia. Blood work was done that shows a hemoglobin of 5.6. He was found to have melanotic stools, he is unable to give a history. 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 he was evaluated in Ed, admitted. EGD on 07/18 showed normal upper GI tract. Colonoscopy done 07/19 negative. Bleeding scan done today was positive but questionable after review with IR. GI doing further evaluation. Please see GI notes. UGIB Acute Blood loss anemia hypertension H/o CVA with residual left sided weakness Dementia Plan Admitted to medicine transfused total 2 units packed red blood cell. EGD normal 07/18 Colonoscopy normal except fecal impaction 07/19 GI Physician following check serial hemoglobin, Cont protonix Continue appropiate medications DVT prophalaxis: SCds I discussed with GI and Dr. Brady recommends either Aspirin or Plavix or discharge but not both as per home med list. History Interval history: melena patient has dementia, cannot give history Hospitalist Physical - Physical exam Narrative exam: Gen: Not in acute distress, Lying in bed, HEENT: Normocephalic, atraumatic Neck: supple, no JVD Heart: S1 and S2 reg, no murmurs, rubs or gallop Lungs: Clear , no crackles, no wheeze Abd: soft, non tender, non distended, normal BS, Ext: No edema, no clubbing, no cyanosis Neuro: Awake, alert, dementia, confused, residual left sided weakness - Constitutional Vitals: Temp Pulse Resp BP Pulse Ox 98.7 F 66 20 138/76 99 07/20/19 08:37 07/20/19 11:32 07/20/19 08:37 07/20/19 08:37 07/20/19 15:25 Results - Labs CBC & Chem 7: 07/20/19 15:35 07/19/19 04:57 Labs: Laboratory Last Values WBC 9.1 K/mm3 (4.5-11.0) 07/20/19 07:42 RBC 3.60 M/mm3 (3.65-5.03) L 07/20/19 07:42 Hgb 8.2 gm/dl (11.8-15.2) L 07/20/19 15:35 Hct 26.6 % (35.5-45.6) L 07/20/19 15:35 MCV 68 fl (84-94) L 07/20/19 07:42 MCH 22 pg (28-32) L 07/20/19 07:42 MCHC 32 % (32-34) 07/20/19 07:42 RDW 24.4 % (13.2-15.2) H 07/20/19 07:42 Plt Count 522 K/mm3 (140-440) H 07/20/19 07:42 Lymph % (Auto) 18.3 % (13.4-35.0) 07/18/19 07:44 [place] % (Auto) 4.5 % (0.0-7.3) 07/18/19 07:44 Eos % (Auto) 2.0 % (0.0-4.3) 07/18/19 07:44 Baso % (Auto) 1.1 % (0.0-1.8) 07/18/19 07:44 Lymph # 1.6 K/mm3 (1.2-5.4) 07/18/19 07:44 [place] # 0.4 K/mm3 (0.0-0.8) 07/18/19 07:44 Eos # 0.2 K/mm3 (0.0-0.4) 07/18/19 07:44 Baso # 0.1 K/mm3 (0.0-0.1) 07/18/19 07:44 Seg Neutrophils % 74.1 % (40.0-70.0) H 07/18/19 07:44 Seg Neutrophils # 6.6 K/mm3 (1.8-7.7) 07/18/19 07:44 PT 13.2 Sec. (12.2-14.9) 07/17/19 19:39 INR 1.03 (0.87-1.13) 07/17/19 19:39 APTT 24.5 Sec. (24.2-36.6) 07/17/19 19:39 Sodium 140 mmol/L (137-145) 07/19/19 04:57 Potassium 3.4 mmol/L (3.6-5.0) L 07/19/19 04:57 Chloride 104.4 mmol/L (98-107) 07/19/19 04:57 Carbon Dioxide 22 mmol/L (22-30) 07/19/19 04:57 17 mmol/L 07/19/19 04:57 BUN 11 mg/dL (9-20) 07/19/19 04:57 1.0 mg/dL (0.8-1.5) 07/19/19 04:57 Estimated GFR > 60 ml/min 07/19/19 04:57 11 % 07/19/19 04:57 Glucose 96 mg/dL (75-100) 07/19/19 04:57 POC Glucose 99 (70-105) 07/20/19 11:18 Calcium 8.7 mg/dL (8.4-10.2) 07/19/19 04:57 0.30 mg/dL (0.1-1.2) 07/17/19 19:39 < 0.2 mg/dL (0-0.2) 07/17/19 19:39 0.1 mg/dL 07/17/19 19:39 AST 12 units/L (5-40) 07/17/19 19:39 ALT 10 units/L (7-56) 07/17/19 19:39 144 units/L (35-129) H 07/17/19 19:39 7.8 g/dL (6.3-8.2) 07/17/19 19:39 4.0 g/dL (3.9-5) 07/17/19 19:39 1.1 % 07/17/19 19:39 Blood Type A POSITIVE 07/17/19 19:39 Antibody Screen Negative 07/17/19 19:39 Crossmatch See Detail 07/17/19 19:39 Active Medications - Current Medications Current Medications: Generic Name Dose Route Start Last Admin Trade Name Freq PRN Reason Stop Dose Admin Acetaminophen 650 mg 07/17/19 21:55 Tylenol PO Q4H PRN Pain MILD(1-3)/Fever >100.5/CHANG Dextrose/Sodium Chloride 1,000 mls @ 75 mls/hr 07/18/19 12:00 07/19/19 19:30 D5/0.45ns IV 75 mls/hr DIRECT OLIVIA Administration Multivitamins/Minerals 1 each 07/19/19 10:00 07/20/19 10:34 Theragran-M Tab PO 1 each QDAY OLIVIA Administration Ondansetron HCl 4 mg 07/17/19 21:55 07/19/19 21:55 Zofran IV 4 mg Q8H PRN Administration Nausea And Vomiting Pantoprazole Sodium 40 mg 07/19/19 10:00 07/20/19 10:34 Protonix PO 40 mg QDAY OLIVIA Administration Senna/Docusate Sodium 1 tab 07/19/19 22:00 07/19/19 21:48 Senokot S PO 1 tab QHS OLIVIA Administration Sodium Chloride 10 ml 07/17/19 22:00 07/20/19 10:34 Sodium Chloride Flush Syringe 10 Ml IV 10 ml BID OLIVIA Administration Sodium Chloride 10 ml 07/17/19 21:55 Sodium Chloride Flush Syringe 10 Ml IV PRN PRN LINE FLUSH
--- NOTE | 2019-07-20 18:11 | Cat Scan Report ---
CT abdomen pelvis wo/w con INDICATION: GI bleed. TECHNIQUE: All CT scans at this location are performed using the following dose modulation technique: Automated exposure control. CONTRAST: Omnipaque 300, 100 cc IV injection. COMPARISON: CT abdomen and pelvis 02/19/2019. GI bleeding scan 07/20/2019. CT ABDOMEN: Imaging was performed pre and post contrast. A nodule at the left base (series 2, image 7 ) measures 5 mm. There is mild scarring at the lung bases left greater than right. Evaluation the parenchymal organs demonstrates small benign-appearing renal cysts. Negative for abdom inal mass, fluid collection or localized inflammation. The colon and stomach are fluid-filled but dem onstrate no localized thickening. Atherosclerotic ectasia of the aorta and its branches is unchanged. CT PELVIS: Negative for pelvic mass, fluid collection or inflammation. Prominent prostate enlargement is noted. No active bleeding site is identified. IMPRESSION: 1. No etiology identified for the patient's active bleed. 2. Prominent prostate enlargement. 3. Moderate colonic stool distally. 4 stable atherosclerotic ectasia involving the aortoiliac system. 4. Incidental pulmonary nodule measuring 5 mm. INCIDENTAL PULMONARY NODULE RECOMMENDATIONS Solid Nodule size <6 mm -- Single or Multiple - Low Risk Patient: No routine follow-up - High Risk Patient: Optional CT at 12 months Note These recommendations do not apply to lung cancer screening, patients with immunosuppression, o r patients with known primary cancer. Note Newly detected indeterminate nodule in persons 35 years of age or older. Persons under the age of 35 should not receive follow-up unless there is a known primary cancer. Low Risk Patient -- minimal or absent history of smoking and of other known risk factors. High Risk Patient -- history of smoking or of other known risk factors. Nodule dimensions are average of long and short axes, rounded to the nearest millimeter. Based on 2017 Fleischner Society Guidelines found in Radiology 2017 284:228-243. https://doi.org/10.1 148/radiol.[email or web address] Signer Name: Ernesto Loomis MD Signed: 07/20/2019 6:07 PM Workstation Name: [id number]
[2019-07-20] MEDS: SENOKOT S PO SCH (21:18)
[2019-07-21 06:49] LABS: Hematocrit 25.4 % (35.5-45.6); Mean Corpuscular HGB Conc 32 % (32-34); Platelet Count 518 K/mm3 (140-440)
[2019-07-21 06:56] LABS: Mean Corpuscular Volume 69 fl (84-94); Red Cell Distribution Width 24.9 % (13.2-15.2)
[2019-07-21 06:58] LABS: BUN/Creatinine Ratio 8; Blood Urea Nitrogen 10 mg/dL (9-20); Hemolysis Index 0
[2019-07-21 10:15] VITALS: BP 140/76
[2019-07-21] MEDS: THERAGRAN-M Tab PO SCH (10:51)
[2019-07-21] MEDS: PROTONIX PO SCH (10:51)
[2019-07-21] MEDS: SODIUM CHLORIDE FLUSH SYRINGE 10 ML IV SCH (10:52)
--- NOTE | 2019-07-21 12:37 | Gastroenterology Progress Note ---
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 Urbano) and Dr. Reece it was thought to be bladder activity with f/u CT negative for active bleeding - clinically, patient is stable w/o GI complaints. No abd pain or N/V. - okay to resume ASA or plavix as needed but not DAPT for CVA prophylaxis- monitor and hold for signs of active bleeding - continue PPI, MVI,and senna - continue supportive care - recommend pill cam as outpatient - patient okay to be d/c per GI standpoint on PPI with f/u in clinic - will sign off, please call if needed Subjective Date of service: 07/21/19 Principal diagnosis: anemia Interval history: No acute distress. No active signs of active bleeding overnight or this am per nursing. Objective - Constitutional Vitals: Temp Pulse Resp BP Pulse Ox 99.3 F 78 20 140/76 97 07/21/19 08:17 07/21/19 08:17 07/21/19 08:17 07/21/19 08:17 07/21/19 08:17 General appearance: no acute distress - Respiratory Respiratory effort: normal - Cardiovascular Rhythm: regular - Gastrointestinal General gastrointestinal: Present: soft, non-tender, non-distended, normal bowel sounds - Labs CBC & Chem 7: 07/21/19 05:32 07/21/19 05:32 Labs: Laboratory Results - last 24 hr 07/20/19 07/20/19 07/20/19 15:35 18:37 21:09 WBC RBC Hgb 8.2 L Hct 26.6 L MCV MCH MCHC RDW Plt Count Sodium Potassium Chloride Carbon Dioxide Anion Gap BUN Creatinine Estimated GFR BUN/Creatinine Ratio Glucose POC Glucose 103 110 H Calcium 07/21/19 07/21/19 07/21/19 05:32 05:32 07:39 WBC 10.2 RBC 3.70 Hgb 8.0 L Hct 25.4 L MCV 69 L MCH 22 L MCHC 32 RDW 24.9 H Plt Count 518 H Sodium 143 Potassium 3.3 L Chloride 107.4 H Carbon Dioxide 23 Anion Gap 16 BUN 10 Creatinine 1.2 Estimated GFR > 60 BUN/Creatinine Ratio 8 Glucose 83 POC Glucose 91 Calcium 9.0 07/21/19 12:12 WBC RBC Hgb Hct MCV MCH MCHC RDW Plt Count Sodium Potassium Chloride Carbon Dioxide Anion Gap BUN Creatinine Estimated GFR BUN/Creatinine Ratio Glucose POC Glucose 134 H Calcium
[2019-07-21] MEDS ORDERED: K-DUR PO ONE ×2 (12:40→16:00)
--- NOTE | 2019-07-21 12:44 | Discharge Summary ---
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 Blood work was done that shows a hemoglobin of 5.6. He was found to have melanotic stools. 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 he was evaluated in Ed, admitted. EGD on 07/18 showed normal upper GI tract. Colonoscopy done 07/19 negative. Bleeding scan done was positive but questionable after review with IR. 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 Urbano) and Dr. Reece it was thought to be bladder activity with f/u CT negative for active bleeding - clinically, patient is stable w/o GI complaints. No abd pain or N/V. - okay to resume ASA or plavix as needed but not DAPT for CVA prophylaxis - continue PPI, MVI,and senna - consider pill cam as outpatient - continue supportive care - further recommendations to follow pending bleeding scan results Discharge diagnosis: UGIB - s/p repeat EGD 07/18/19 with normal upper GI tract noted (w/o bleeding or clip from prior endoscopy) - s/p colonoscopy 07/19/19 that showed fecal impaction with brown stool in rectum and fair prep rest of colon but no blood/clots/diverticulosis/severe hemorrhoids -NM bleeding scan with possible active bleeding in sigmoid colon yesterday, however after further review with IR (Dr. Urbano) and Dr. Reece it was thought to be bladder activity with f/u CT negative for active bleeding - clinically, patient is stable w/o GI complaints. No abd pain or N/V. Acute Blood loss anemia - s/p 2 units blood transfusion hypertension, stable H/o CVA with residual left sided weakness, cont aspirin Dementia, stable Hospitalist Physical Gen: Not in acute distress, Lying in bed, HEENT: Normocephalic, atraumatic Neck: supple, no JVD Heart: S1 and S2 reg, no murmurs, rubs or gallop Lungs: Clear , no crackles, no wheeze Abd: soft, non tender, non distended, normal BS, Ext: No edema, no clubbing, no cyanosis Neuro: Awake, alert, dementia, confused, residual left sided weakness Disposition: DC-01 TO HOME OR SELFCARE Time spent for discharge: 34 minutes Core Measure Documentation - Palliative Care Palliative Care/ Comfort Measures: Not Applicable - Core Measures Any of the following diagnoses?: history only Exam - Constitutional Vitals: Temp Pulse Resp BP Pulse Ox 99.3 F 78 20 140/76 97 07/21/19 08:17 07/21/19 08:17 07/21/19 08:17 07/21/19 08:17 07/21/19 08:17 Plan Activity: up only with assistance Weight Bearing Status: Non-Weight Bearing Diet: low fat, low salt Follow up with: IMER BOWENS MD [Primary Care Provider] - 3-5 Days KIKA CARTY MD [Staff Physician] - 7 Days
--- NOTE | 2019-07-21 17:38 | Event Note ---
Date: 07/21/19 Contacted to review GI bleeding scan. Reviewed GI bleeding scan. I believe the finding concerning for GI bleeding is actually the bladder. I reviewed this with a second radiologist, Dr. Reece, who agreed with my assessment. Recommend CT angiogram of the abdomen and pelvis for GI bleeding. If positive, then we'll proceed with angiography. I suspect it will be negative.
== END 2019-07-21 16:45 | DRG 378 ==
LOC: ED 17:30 → 4A 21:55
PROVIDERS: ADMIT Internal Medicine; ATTEND Internal Medicine
PROC: 30233N1 Transfusion of Nonautologous Red Blood Cells into Peripheral Vein, Percutaneous Approach (ICD-10-PCS; principal; 2019-07-18)
PROC: 0DJ08ZZ Inspection of Upper Intestinal Tract, Via Natural or Artificial Opening Endoscopic (ICD-10-PCS; 2019-07-18)
PROC: 0DJD8ZZ Inspection of Lower Intestinal Tract, Via Natural or Artificial Opening Endoscopic (ICD-10-PCS; 2019-07-19)
DX: K92.2 Gastrointestinal hemorrhage, unspecified (principal); D62 Acute posthemorrhagic anemia; I69.354 Hemiplegia and hemiparesis following cerebral infarction affecting left non-dominant side; I10 Essential (primary) hypertension; K56.41 Fecal impaction; D64.9 Anemia, unspecified; F03.90 Unspecified dementia, unspecified severity, without behavioral disturbance, psychotic disturbance, mood disturbance, and anxiety; Z82.49 Family history of ischemic heart disease and other diseases of the circulatory system; Z82.3 Family history of stroke; Z88.0 Allergy status to penicillin; Z79.82 Long term (current) use of aspirin; Z79.899 Other long term (current) drug therapy
CPT/HCPCS: 36415; 71045; 74178; 78278; 80048; 80076; 82962; 85014; 85018; 85025; 85027; 85610; 85730; 86850; 86900; 86901; 86920; 96374; G0378; A9560; C9113; J1642; J2405; J2704; J3480; J7030; J7040; J7050; P9016; Q9967